=== PATIENT | male | born 1960 | race Caucasian/White ===

== ENCOUNTER 2020-12-11 19:56 | Inpatient (IN) | payer OTHER ==
[~2020-12-11] VITALS: Ht 177.8 cm; Wt 96.0 kg
[2020-12-11 20:01] VITALS: BP 137/80
[2020-12-11] MEDS ORDERED: PROAIR HFA8.5 GM INH (20:03)
[2020-12-11 20:31] LABS: ABSOLUTE NEUTROPHILS 8.1 thou/uL (1.4-8.2); BASOPHILS 0.8 % (0.0-2.0); EOSINOPHILS 0.6 % (0.0-3.0); HEMATOCRIT 37.9 % (42.0-52.0); HEMOGLOBIN 13.2 gm/dL (14.0-18.0); LYMPHOCYTES 16.6 % (24.0-44.0); MCH 40.9 pg (26.0-34.0); MCHC 34.7 g/dL (28.0-37.0); MCV 117.9 fL (80.0-100.0); MONOCYTES 6.9 % (1.0-8.0); PLATELET COUNT 230 thou/uL (150-400); POLYS 75.1 % (36.0-66.0); RBC 3.22 mil/uL (4.50-6.00); RDW 16.3 % (10.5-14.5); WBC 10.8 thou/uL (4.0-11.0)
[2020-12-11 20:43] LABS: ANION GAP 10 mmol/L (7-16); BUN 12 mg/dL (7-18); CALCIUM 9.1 mg/dL (8.5-10.1); CHLORIDE 102 mmol/L (98-107); CO2 27 mmol/L (21-32); CREATININE 0.8 mg/dL (0.7-1.3); GLUCOSE 104 mg/dL (74-106); POTASSIUM 5.1 mmol/L (3.5-5.1); SODIUM 139 mmol/L (136-145)
[2020-12-11 20:54] LABS: ALBUMIN 2.6 g/dL (3.4-5.0); AMYLASE 46 U/L (25-115); DIRECT BILIRUBIN 1.1 mg/dL (<0.1-0.2); LIPASE 156 U/L (73-393); MAGNESIUM 1.2 mg/dL (1.8-2.4); PHOSPHORUS 3.8 mg/dL (2.6-4.7); SGOT 134 U/L (15-37); SGPT 45 U/L (16-63); TOTAL BILIRUBIN 2.2 mg/dL (0.2-1.0); TOTAL PROTEIN 6.1 g/dL (6.4-8.2); TROPONIN-I <0.06 ng/mL (<0.06)
[2020-12-11 20:59] LABS: BE(vivo) 0.7 mmol/L (-2 to +3); HCO3 25.5 mmol/L (22.0-26.0); PCO2 41.3 mmHg (35.0-45.0); PO2 66.5 mmHg (80.0-100.0); pH 7.408 (7.360-7.450); sO2 93.3 % (92.0-98.0)
[2020-12-11 21:15] LABS: URINE BLOOD NEGATIVE (Negative); URINE CLARITY CLEAR; URINE COLOR YELLOW; URINE GLUCOSE-RANDOM* TRACE (Negative); URINE KETONES TRACE (Negative); URINE LEUKOCYTES-REFLEX NEGATIVE (Negative); URINE NITRITE-REFLEX NEGATIVE (Negative); URINE PROTEIN (DIPSTICK) TRACE (Negative); URINE SPECIFIC GRAVITY 1.025 (1.005-1.035)
[2020-12-11 21:17] LABS: ICTOTEST (BILI CONFIRMATORY) Negative (Negative); URINE BILIRUBIN NEGATIVE (Negative)
[2020-12-11 22:07] VITALS: BP 132/92
[2020-12-11 22:20] VITALS: BP 142/92
[2020-12-11 22:50] VITALS: BP 111/98
[2020-12-11 23:11] LABS: FOLIC ACID 4.6 ng/mL (8.6-58.9)
[2020-12-12] VITALS (8 sets, daily range): BP systolic 106–136; BP diastolic 66–92
[2020-12-12 02:39] LABS: ANION GAP 10 mmol/L (7-16); BUN 12 mg/dL (7-18); CALCIUM 8.4 mg/dL (8.5-10.1); CHLORIDE 104 mmol/L (98-107); CO2 25 mmol/L (21-32); CREATININE 0.8 mg/dL (0.7-1.3); GLUCOSE 127 mg/dL (74-106); MAGNESIUM 1.3 mg/dL (1.8-2.4); POTASSIUM 4.9 mmol/L (3.5-5.1); SODIUM 139 mmol/L (136-145); TROPONIN-I <0.06 ng/mL (<0.06)
[2020-12-12 03:13] LABS: CHOLESTEROL 106 mg/dL (<200); HDL CHOLESTEROL 18 mg/dL (>40); LDL CHOLESTEROL 69 mg/dL (<100); TC:HDL 5.9 Ratio (Not establshd); TRIGLYCERIDE 95 mg/dL (<150); VLDL 19 mg/dL (<40)
[2020-12-12 03:26] LABS: SERUM ASSESSMENT Clear
--- NOTE | 2020-12-12 06:40 | NUR ---
RECEIVED REPORT FROM [facility] ED RN.PT ARRIVED TO ROOM 204 AROUND 2230.PATIENT ALERT,ORIENTED.HEART RATE IN THE 140'S.METOPROLOL GIVEN.LORAZEPAM PO AND IV GIVEN FOR ANXIETY/AGITATION.VOIDS PER URINAL.O2 2L NC.LACTIC LEVEL TRENDING DOWN.NS AT 125 ML/HR.POC CONTINUED.
--- NOTE | 2020-12-12 07:07 | EKG ---
[address] [place] [address] ELECTROCARDIOGRAM REPORT Name: JUANIPENG GibbonsCORNELAGATHA QURESHI Room #: 204-P ADM IN M.R.#: [id number] Admission: 12/11/20 Attend Phys: Marie Field MD Discharge: Date of : 58 Report #: [id number] [facility] ED Test Date: 2020-12-11 Test Time: 20:06:02 Pat Name: CORNEL TINAJERO Department: Room: 204 Gender: M Breakfast Attendant: CHRISTOPH : 1960 Requested By: Evans Salamanca Order Number: [id number] MD: Sidney De Leon Measurements Intervals [place] Rate: 148 P: SC: QRS: -27 QRSD: 116 T: 0 QT: 334 QTc: 525 Interpretive Statements Suspect AFIB/Flutter Incomplete right bundle branch block Inferior infarct, old Lateral leads are also involved No previous ECG available for comparison Electronically Signed On 12-12-2020 7:06:55 CDT by Sidney De Leon [email or web address] <ELECTRONICALLY SIGNED> By: Sidney De Leon MD, [facility] 12/12/20705 05 05 Sidney De Leon MD, [facility] /EPI
--- NOTE | 2020-12-12 09:45 | 2DMMODE ---
[facility] [place] [address] 2 D/M-MODE ECHOCARDIOGRAM Name: CORNEL TINAJERO TITUS Room #: 204-P ADM IN M.R.#: [id number] Admission: 12/11/20 Attend Phys: Marie Field MD Discharge: Date of : 58 Report #: [id number] THIS REPORT FOR: cc: FAM - No family physician/PCP FAM - No family physician/PCP Dwight Bae MD ~ APPROVED REPORT Study performed: 12/12/2020 08:33:30 EXAM: Comprehensive 2D, Doppler, and color-flow Echocardiogram Patient Location: Bedside Room #: 204 Status: routine BSA: 2.29 HR: 145 bpm BP: 127/85 mmHg Rhythm: Tachycardia Other Information Study Quality: Adequate Technically limited study due to obesity, uncooperative patient. Indications Dyspnea Tachycardia Chest Pain Hx: COPD, ETOH and tobacco abuse, DM, HLP, HTN. 2D Dimensions IVSd: 10.13 (7-11mm) LVOT Diam: 19.95 (18-24mm) LVDd: 54.75 mm PWd: 9.97 (7-11mm) Ascending Ao: 39.92 (22-36mm) LVDs: 42.37 (25-40mm) Aortic Root: 37.97 mm Volumes Left Atrial Volume (Systole) Single Plane 4CH: 68.60 mL Single Plane 2CH: 76.62 mL LA ESV Index: 33.00 mL/m2 Aortic Valve AoV Peak Santiago.: 1.39 m/s [facility] [place] [address] [place] [address] 2 D/M-MODE ECHOCARDIOGRAM Name: SHARIFVERONICACORNEL TITUS Room #: 204-P ADM IN M.R.#: [id number] Admission: 12/11/20 Attend Phys: Yahaira Tellez Discharge: Date of : 58 Report #: [id number] AO Peak Gr.: 7.72 mmHg LVOT Max P.71 mmHg LVOT Max V: 1.20 m/s JAC Vmax: 2.69 cm2 Mitral Valve E/A Ratio: 1.3 MV Decel. Time: 96.16 ms MV E Max Santiago.: 0.99 m/s MV A Santiago.: 0.76 m/s MV PHT: 27.89 ms Left Ventricle The left ventricle is normal size. There is normal LV segmental wall motion. There is normal left ventricular wall thickness. Left ventricular systolic function is normal. LVEF is 55%. This study is not technically sufficient to allow evaluation of the LV diastolic function. Right Ventricle The right ventricle is normal size. The right ventricular systolic function is normal. Atria Mild biatrial enlargement. Aortic Valve The aortic valve is not well visualized. No aortic regurgitation is present. There is no aortic valvular stenosis. Mitral Valve Mitral valve leaflets are mildly thickened. Mild mitral annular calcification. Trace mitral regurgitation. Tricuspid Valve The tricuspid valve is normal in structure. There is no tricuspid valve regurgitation noted. Unable to assess PA pressure. Pulmonic Valve Pulmonic valve is not well visualized. Great Vessels The aortic root is normal in size. The ascending aorta is normal in size. IVC is not well visualized. Pericardium There is no pericardial effusion. [facility] [address] [place] [address] 2 D/M-MODE ECHOCARDIOGRAM Name: SHARIFVERONICACORNEL TITUS Room #: 204-P ADM IN .R.#: [id number] Admission: 12/11/20 Attend Phys: Yahaira Tellez Discharge: Date of : 58 Report #: [id number] <Conclusion> The left ventricle is normal size. Left ventricular systolic function is normal. LVEF is 55%. Mild biatrial enlargement. The aortic valve is not well visualized. No aortic regurgitation is present. Mitral valve leaflets are mildly thickened. Mild mitral annular calcification. Trace mitral regurgitation. The tricuspid valve is normal in structure. There is no tricuspid valve regurgitation noted. Unable to assess PA pressure. Pulmonic valve is not well visualized. The aortic root is normal in size. There is no pericardial effusion. <ELECTRONICALLY SIGNED> By: Dwight Bae MD 12/12/20 0945 0945 0945 Dwight Bae MD /INF
[2020-12-12 10:10] LABS: INR 1.29; PROTIME 13.9 Seconds (9.3-11.4)
--- NOTE | 2020-12-12 13:02 | EKG ---
[address] [address] ELECTROCARDIOGRAM REPORT Name: LIORCORNEL QURESHI Room #: 204-P ADM IN M.R.#: [id number] Admission: 12/11/20 Attend Phys: Marie Field MD Discharge: Date of : 58 Report #: [id number] [facility] ED Test Date: 2020-12-11 Test Time: 20:57:31 Pat Name: CORNEL TINAJERO Department: Room: 204 P Gender: M Block Greaser: CHRISTOPH : 1960 Requested By: Evans Salamanca Order Number: [id number] MD: Aftab Murphy Measurements Intervals [place] Rate: 146 P: 93 NE: 95 QRS: -79 QRSD: 144 T: -29 QT: 359 QTc: 560 Interpretive Statements Possibel atrial flutter with 2:1 conduction Nonspecific T wave abnormality Low voltage QRS Compared to ECG 12/11/2020 20:06:02 No significant change was found Electronically Signed On 12-12-2020 13:02:49 CDT by Aftab Murphy [email or web address] <ELECTRONICALLY SIGNED> By: Aftab Murphy MD, [facility] 12/12/20 1302 56 56 Aftab Murphy MD, [facility] /EPI
--- NOTE | 2020-12-12 13:05 | EKG ---
[address] [address] ELECTROCARDIOGRAM REPORT Name: LIORCORNEL QURESHI Room #: 204-P ADM IN M.R.#: [id number] Admission: 12/11/20 Attend Phys: Marie Field MD Discharge: Date of : 58 Report #: [id number] [facility] Test Date: 2020-12-12 Test Time: 07:34:51 Pat Name: CORNEL TINAJERO Department: Room: 204 P Gender: M Panelboard Operator: JERRICA : 1960 Requested By: Elly Anderson Order Number: [id number] MD: Aftab Murphy Measurements Intervals [place] Rate: 144 P: 85 IA: 80 QRS: -72 QRSD: 112 T: -47 QT: 339 QTc: 525 Interpretive Statements Sinus tachycardia vs atrial flutter 2:1 conduction Leftward axis Low voltage QRS Compared to ECG 12/11/2020 20:57:31 No significant change was found Electronically Signed On 12-12-2020 13:04:58 CDT by Aftab Murphy [email or web address] <ELECTRONICALLY SIGNED> By: Aftab Murphy MD, [facility] 12/12/20 1304 0734 0734 Aftab Murphy MD, [facility] /EPI
--- NOTE | 2020-12-12 14:11 | NUR ---
Case opened to follow for dc planning. Chart reviewed and case discussed with the care team. Dc timeframe is uncertain as the pt is being treated for ethol w/d, COPD and aflutter. Cardizem gtt today and o2 at 2lnc. Nursing reports pt is irritable and trying to get comfortable. Tugboat Engineer spoke with pt's Ruby and her cell number was confirmed. She was by this morning on her way to work. she confirmed that the pt does not have health ins at this time. She met with the [employer] liason yesterday evening and they [place] and [place] application for the pt. She reports that he has been unable to work for some time due to health issues and ethol abuse. This has worsened significantly over the past few months and notes he drinks 24hrs a day. She states that he has not been to any inpt tx programs but at one time had sobriety for 5+ years. He was indep with gait and txs as well as adl's and helped with errands and cooking prior to the past couple of months. He has been having increased swelling and pain in his lower exts and he has been staying in bed most of the time. He does not have a pcp or saftey net clinic. [facility] and [facility] discussed. She is hopeful he can improve and want to be sober and better his health situation. He does not have any dme at home and no prior HH or SNF needs. Cm role introduced. Will follow along. PT/OT evals requested as appropriate.
--- NOTE | 2020-12-12 18:53 | NUR ---
PT BEGAN SHIFT AXOX4, PLEASANT. DAY PROGRESSED, PT BECAME MORE AGITATED AND INCREASED CIWA PROTOCOL. PT HAS VISIBLE TREMORS WHEN REACHING FOR WATER, COMPLAINS OF BEING WARM, AND IS AGITATED WHEN SLEEPING. PT HAS HAD HR 140-150s, ST ON MONITOR. DR SAMS CONSULTED, CARDIAC COMMUNICATIONS DEPARTMENT CHAIR CONSULTED. CARDIZEM GTT STARTED, ALONG WITH AGGRESSIVE CIWA RX PROTOCOL. HR IS 100-110s. POC IS TO CONTINUE TO MONITOR HR/BP/O2. PT IS ON 4L NC, SOA ON EXERTION. FALL PRECAUTIONS IN PLACE. FREQUENT ROUNDINGS.
[2020-12-12 23:06] LABS: GLYCOHEMOGLOBIN (HGB A1C) 4.4 % (4.8-5.6)
[2020-12-13] VITALS (28 sets, daily range): BP systolic 67–152; BP diastolic 42–94
--- NOTE | 2020-12-13 04:52 | NUR ---
PT ALERT AND AGITATED AT START OF SHIFT HR UP TO 140'S TITRATED CARDIZEM GTT UP AND IV LEAKING CHANGED TO OTHER IV SITE AND HR DOWN TO LOW 100'S, VSS, CIWA MONITORED AND TREATED THRU THE NOC, REPOSITIONED NEEDED CON'T TO MONITOR PER PPOC.
[2020-12-13 05:08] LABS: CALCIUM 8.3 mg/dL (8.5-10.1); CREATININE 0.8 mg/dL (0.7-1.3); MAGNESIUM 1.7 mg/dL (1.8-2.4); PHOSPHORUS 2.6 mg/dL (2.5-4.9); POTASSIUM 4.6 mmol/L (3.5-5.1)
[2020-12-13 05:14] LABS: HEMATOCRIT 39.3 % (42.0-52.0); HEMOGLOBIN 13.1 gm/dL (14.0-18.0); MCHC 33.2 g/dL (28.0-37.0); MCV 117.5 fL (80.0-100.0); RBC 3.35 mil/uL (4.50-6.00); RDW 15.8 % (10.5-14.5); WBC 11.4 thou/uL (4.0-11.0)
[2020-12-13 05:29] LABS: ALBUMIN 2.5 g/dL (3.4-5.0); DIRECT BILIRUBIN 1.2 mg/dL (<0.1-0.2); TOTAL PROTEIN 5.3 g/dL (6.4-8.2)
[2020-12-13 05:31] LABS: INR 1.42; PROTIME 15.2 Seconds (9.3-11.4)
[2020-12-13 11:22] LABS: BE(vivo) -1.9 mmol/L (-2 to +3); HCO3 23.5 mmol/L (22.0-26.0); PCO2 42.6 mmHg (35.0-45.0); PO2 62.3 mmHg (80.0-100.0)
--- NOTE | 2020-12-13 13:56 | NUR ---
RECEIVED PT FROM SEATING UPHOLSTERER. PT IS ORIENTED TO PERSON, SPEECH SLURRED, SHOWING SIGNS OF AGITATION. HR 140-150s. PT HAD CHEST XRAY IN AM, SPEECH TO DO SWALLOW ASSESSMENT. BTWN [phone], PT GOT OUT OF BED AND FELL NEAR BATHROOM/ROOM ENTRANCE. RECEIVED SKIN TEAR/CUT ON LEFT HAND. DR SAMS CONSULTED, ELECTRIC SOLDERER CALLED, FAMILY CALLED. PT CIWA PROTOCOL; HIGH FALL RISKS. PT HAS SITTER IN ROOM, RX LORAZEPAM, HALIDOL, AND CARDIZEM GIVEN. WILL CONTINUE TO CONDUCT FREQUENT ROUNDINGS. DR MICHAEL AND RT CONSULTED. IV TEAM PLACED NEW IV IN R FOREARM. HR IN 100s.
[2020-12-13 18:52] LABS: BE(vivo) -2.2 mmol/L (-2 to +3); HCO3 24.1 mmol/L (22.0-26.0); PCO2 46.9 mmHg (35.0-45.0); sO2 80.1 % (92.0-98.0)
[2020-12-13 18:57] LABS: PO2 47.4 mmHg (80.0-100.0); pH 7.328 (7.360-7.450)
[2020-12-13 20:36] LABS: HEMATOCRIT 39.9 % (42.0-52.0); HEMOGLOBIN 12.9 gm/dL (14.0-18.0); MCH 38.6 pg (26.0-34.0); MCHC 32.4 g/dL (28.0-37.0); MCV 119.3 fL (80.0-100.0); RBC 3.34 mil/uL (4.50-6.00); RDW 16.2 % (10.5-14.5); WBC 17.7 thou/uL (4.0-11.0)
[2020-12-13 20:49] LABS: CALCIUM 8.2 mg/dL (8.5-10.1); CREATININE 0.9 mg/dL (0.7-1.3); POTASSIUM 5.1 mmol/L (3.5-5.1)
[2020-12-13 20:56] LABS: BE(vivo) -3.6 mmol/L (-2 to +3); HCO3 24.6 mmol/L (22.0-26.0); PCO2 58.4 mmHg (35.0-45.0); PO2 104.5 mmHg (80.0-100.0); sO2 96.8 % (92.0-98.0)
[2020-12-13 20:57] LABS: ALBUMIN 2.7 g/dL (3.4-5.0); MAGNESIUM 1.8 mg/dL (1.8-2.4); TOTAL BILIRUBIN 1.6 mg/dL (0.2-1.0)
[2020-12-13 20:57] LABS: pH 7.242 (7.360-7.450)
[2020-12-13 21:54] LABS: APTT 26.1 Seconds (24.5-32.8); INR 1.51; PROTIME 16.1 Seconds (9.3-11.4)
[2020-12-14] VITALS (48 sets, daily range): BP systolic 80–130; BP diastolic 53–85
[2020-12-14 04:26] LABS: CALCIUM 7.7 mg/dL (8.5-10.1); CREATININE 0.9 mg/dL (0.7-1.3); POTASSIUM 4.4 mmol/L (3.5-5.1)
[2020-12-14 04:41] LABS: HEMATOCRIT 37.2 % (42.0-52.0); HEMOGLOBIN 12.5 gm/dL (14.0-18.0); MCH 39.5 pg (26.0-34.0); MCHC 33.5 g/dL (28.0-37.0); MCV 117.8 fL (80.0-100.0); RBC 3.16 mil/uL (4.50-6.00); RDW 15.6 % (10.5-14.5); WBC 12.3 thou/uL (4.0-11.0)
[2020-12-14 05:51] LABS: BE(vivo) -1.2 mmol/L (-2 to +3); HCO3 23.5 mmol/L (22.0-26.0); PCO2 39.5 mmHg (35.0-45.0); PO2 343.1 mmHg (80.0-100.0); pH 7.392 (7.360-7.450); sO2 99.8 % (92.0-98.0)
--- NOTE | 2020-12-14 08:01 | NUR ---
ORDERS FOR EVAL AND TREAT HOWEVER Pt TRANSFERRED TO ICU. WILL PLACE ON HOLD AND AWAIT NEW ORDERS TO INITIATE WHEN APPROPRIATE
--- NOTE | 2020-12-14 08:06 | NUR ---
1899- Patient brought to ICU from on the bipap. Patient with increaased work of breathing, having a lot of belly breathing. Cardizem at 20 mg/hr with HR in the 120's. Patient opens eyes to name. Moves extremities on own. Precedex started upon arrival to ICU. Fluids infusing. Called ABG to Dr. Galindo. Orders to keep on bipap overnight, using ativan to supplement precedex if needed. 1939- Restraints placed to keep patient from pulling at bipap. 1949- 2 mg ativan given. 1954- unable to get an O2 sat on patient. Patient appears cyanotic. code blue called for respiratory arrest. Patient intubated by ER physician. Patient maintained pulse at all times. Pt. did drop HR and blood pressure. Cardizem turned off. Precedex turned off. Ketamine used for intubation. Courtney placed with out difficulty. Additional IV access was obtained. 1L NS given. Levophed started to support blood pressure. Repeat blood gas was called to Dr. Galindo. Adjustments made to vent per orders. HR and rhythm has been mostly a-flutter in the 70's. When patient wakes, HR jumps into the 140's. Versed, Fentanyl and Propofol started to promote comfort while on vent. tolereating well. See documentation on interventions for assessmemt details. Report given to day RN.
--- NOTE | 2020-12-14 11:10 | NUR ---
VAT CONSULTED FOR CVAD. PT'S LABS,HX,ORDER AND CONSENT VERIFIED. RIJ WAS WIDELY PATENT WITH USG, 6FR 25CM TL POWER JACC INSERTED TO 8CM EXTERNAL. BLEEDING AT SITE, GAUZE APPLIED. STAT CXR ORDERED
[2020-12-15] VITALS (45 sets, daily range): BP systolic 92–128; BP diastolic 61–96
[2020-12-15 05:02] LABS: BE(vivo) 0.1 mmol/L (-2 to +3); HCO3 24.9 mmol/L (22.0-26.0); PCO2 40.7 mmHg (35.0-45.0); pH 7.404 (7.360-7.450); sO2 93.4 % (92.0-98.0)
[2020-12-15 05:09] LABS: HEMATOCRIT 38.4 % (42.0-52.0); HEMOGLOBIN 12.7 gm/dL (14.0-18.0); MCH 38.7 pg (26.0-34.0); MCHC 33.1 g/dL (28.0-37.0); MCV 116.8 fL (80.0-100.0); RBC 3.29 mil/uL (4.50-6.00); RDW 15.9 % (10.5-14.5); WBC 10.6 thou/uL (4.0-11.0)
[2020-12-15 05:20] LABS: CALCIUM 7.9 mg/dL (8.5-10.1); CREATININE 0.9 mg/dL (0.7-1.3); POTASSIUM 4.6 mmol/L (3.5-5.1)
--- NOTE | 2020-12-15 06:24 | NUR ---
Patient has remained stable this shift. No significant changes in assessment. See documentation on interventions for assessment details. No family called this shift. Patient is progressing towards goals.
--- NOTE | 2020-12-15 14:40 | NUR ---
IF HR REMAINS ELEVATED, CURRENTLY 115-119 OK TO RESTART PROPOFOL GTT. PER DR. MICHAEL. GIVE LORAZEMPAM FIRST, IF IT DOES NOT DECREASE HR RESTART PROPOFOL. PER DR. CEDILLO
--- NOTE | 2020-12-15 16:27 | NUR ---
1626- PT'S HR HAS SUSTAINED BETWEEN 115-120 THIS SHIFT. CARDIOLOGY ROUNDED ON PT THIS AM AND STARTED METOPROLOL, FIRST DOSE GIVEN THIS AM. NOT MUCH CHANGE TO HR WITH 1ST DOSE. DR. MICHAEL ROUNDED AND STATED TO GIVE 1 DOSE OF IV LORAZEPAM AND THEN TO SWITCH FROM PRECEDEX TO PROPOFOL FOR SEDATION. DR. BURKS WAS CALLED AND MADE AWARE OF CURRENT HR OF 115-120. DR. BURKS STATES PT IS VENTED AND HE IS AWARE AND OKAY WITH THAT HR. WILL CONTINUE TO MONITOR PT.
--- NOTE | 2020-12-15 18:29 | NUR ---
PT WAS STARTED ON TUBE FEEDING THIS AFTERNOON PER DR. ALEC HARTMAN. JEVITY 1.5 WITH A GOAL RATE OF 50 MLS/HR AND 250CC H20 FLUSHES Q6. PT TOLERATED FIRST FLUSH WELL, NO RESIDUALS AT THIS TIME.
[2020-12-16] VITALS (105 sets, daily range): BP systolic 48–121; BP diastolic 15–88
[2020-12-16 04:57] LABS: APTT 26.2 Seconds (24.5-32.8); INR 1.51; PROTIME 16.1 Seconds (9.3-11.4)
[2020-12-16 05:06] LABS: HEMATOCRIT 39.5 % (42.0-52.0); HEMOGLOBIN 13.2 gm/dL (14.0-18.0); MCH 38.8 pg (26.0-34.0); MCHC 33.3 g/dL (28.0-37.0); MCV 116.7 fL (80.0-100.0); RBC 3.39 mil/uL (4.50-6.00); RDW 15.9 % (10.5-14.5); WBC 12.7 thou/uL (4.0-11.0)
[2020-12-16 05:15] LABS: ALBUMIN 2.2 g/dL (3.4-5.0); CALCIUM 7.6 mg/dL (8.5-10.1); CREATININE 0.9 mg/dL (0.7-1.3); MAGNESIUM 1.8 mg/dL (1.8-2.4); POTASSIUM 4.9 mmol/L (3.5-5.1); TOTAL BILIRUBIN 1.3 mg/dL (0.2-1.0); TOTAL PROTEIN 4.9 g/dL (6.4-8.2)
--- NOTE | 2020-12-16 09:15 | EKG ---
[address] [address] ELECTROCARDIOGRAM REPORT Name: RANDY TINAJEROALEK QURESHI Room #: 245- ADM IN M.R.#: [id number] Admission: 12/11/20 Attend Phys: Marie Field MD Discharge: Date of : 58 Report #: [id number] [facility] Test Date: 2020-12-13 Test Time: 20:31:33 Pat Name: CORNEL TINAJERO Department: Room: [facility] Gender: M Film Projector Operator: FSCHWALBE : 1960 Requested By: Marie Field Order Number: [id number] MD: Aftab Murphy Measurements Intervals [place] Rate: 71 P: VT: QRS: 36 QRSD: 122 T: 58 QT: 442 QTc: 481 Interpretive Statements Atrial flutter with predominant 4:1 AV block Right ventricular conduction delay Compared to ECG 12/12/2020 07:34:51 Heart rate has slowed Electronically Signed On 12-16-2020 9:15:02 CDT by Aftab Murphy [email or web address] <ELECTRONICALLY SIGNED> By: Aftab Murphy MD, [facility] 12/16/20914 30 30 Aftab Murphy MD, [facility] /EPI
--- NOTE | 2020-12-16 10:19 | NUR ---
Nutrition: To better meet needs suggest change tube feeds to Vital HP at 55 mL/hr. Noted pt on both IVFS and water flushes with edema present. Address fluid provisions.
--- NOTE | 2020-12-16 10:34 | NUR ---
0900 SPOKE WITH PT'S JOHNNA TINAJERO AND UPDATED HER.
--- NOTE | 2020-12-16 15:45 | NUR ---
chart review. on vent, tf for nutritional support. fio2 30, peep 8. noted bedside nurse spoke with anthony, provided update. will cont following as needed for dc needs.
--- NOTE | 2020-12-16 20:04 | NUR ---
PT REMAINS SEDATED WITH PROPOFOL, VERSED, FENT GTTS. SEDATION VACATION DONE AND PT VERY AGITATED THRASHING OFF SEDATION AND HR INCREASED TO 150'S. SEDATION RESTARTED. TUBE FEEDING CHANGED TO VITAL HP ORDERED. TOLERATING WELL. SPOKE WITH PT'S AT 0900 AND UPDATED HER BY PHONE. 1500 PT'S AT BEDSIDE AND UPDATED. REPORT GIVEN TO CONCRETE PLACEMENT EQUIPMENT OPERATOR RN.
[2020-12-17] VITALS (80 sets, daily range): BP systolic 84–125; BP diastolic 56–86
[2020-12-17 03:31] LABS: PCO2 44.4 mmHg (35.0-45.0); PO2 77.4 mmHg (80.0-100.0); pH 7.332 (7.360-7.450); sO2 94.6 % (92.0-98.0)
[2020-12-17 05:14] LABS: CALCIUM 7.5 mg/dL (8.5-10.1); CREATININE 0.7 mg/dL (0.7-1.3); POTASSIUM 4.6 mmol/L (3.5-5.1)
[2020-12-17 06:18] LABS: HEMATOCRIT 39.8 % (42.0-52.0); HEMOGLOBIN 13.1 gm/dL (14.0-18.0); MCH 38.2 pg (26.0-34.0); MCHC 32.8 g/dL (28.0-37.0); MCV 116.4 fL (80.0-100.0); RBC 3.42 mil/uL (4.50-6.00); WBC 14.4 thou/uL (4.0-11.0)
[2020-12-18] VITALS (22 sets, daily range): BP systolic 101–128; BP diastolic 63–98
[2020-12-18 05:44] LABS: HEMOGLOBIN 13.3 gm/dL (14.0-18.0); MCH 38.8 pg (26.0-34.0); MCHC 33.3 g/dL (28.0-37.0); MCV 116.6 fL (80.0-100.0); RBC 3.43 mil/uL (4.50-6.00); RDW 15.7 % (10.5-14.5); WBC 9.6 thou/uL (4.0-11.0)
[2020-12-18 05:50] LABS: ALBUMIN 2.1 g/dL (3.4-5.0); DIRECT BILIRUBIN 0.8 mg/dL (<0.1-0.2); TOTAL BILIRUBIN 1.5 mg/dL (0.2-1.0); TOTAL PROTEIN 4.6 g/dL (6.4-8.2)
[2020-12-18 05:54] LABS: CALCIUM 7.7 mg/dL (8.5-10.1); CREATININE 0.8 mg/dL (0.7-1.3)
--- NOTE | 2020-12-18 15:47 | NUR ---
PT INTUBATED AND SEDATED. VENT SETTINGS UNCHANGED DUE TO FALIED CPAP TRIAL. PT HAD SEDATION VACATION FOR 5 MINUTES, PT BECAME EXTREMELY AGITATED/TACHYCARDIC. PT DOES NOT FSC, COUGH/GAG INTACT. HAS ANSARCA ON BILATERAL ARMS AND LOWER EXTREMITIES. CHANGES FROM AFIB/AFLUTTER TO NSR REGULARLY. OG TUBE IN PLACE FOR ENTERAL FEEDINGS. PT AFEBRILE, OLIGURIC, NO BM (PRN'S GIVEN), TOLERATING TUBE FEEDINGS WITH RESIDUALS WNL. RIGHT IJ IN PLACE AND FUNCTIONING WELL. PT AND HAVE BEEN UPDATED AND EDUCATED ON PT CONDITION AND POC. PT NOT PROGRESSING TOWARDS POC. PT BEGINING TO HAVE INCREASED AMOUNT OF MOTTLING ON SKIN. PIV IN RIGHT ARM TAKEN OUT BY IV ACCESS TEAM.
[2020-12-18 23:06] LABS: HBsAG-EMPLOYEE EXPOSURE Negative (Negative); HCV AB-EMPLOYEE EXPOSURE <0.1 (0.0-0.9)
[2020-12-19] VITALS (12 sets, daily range): BP systolic 101–132; BP diastolic 66–90
[2020-12-19 04:38] LABS: BE(vivo) 0.3 mmol/L (-2 to +3); HCO3 24.1 mmol/L (22.0-26.0); PCO2 36.3 mmHg (35.0-45.0); PO2 64.5 mmHg (80.0-100.0); sO2 93.4 % (92.0-98.0)
[2020-12-19 05:46] LABS: HEMOGLOBIN 13.4 gm/dL (14.0-18.0); MCH 38.4 pg (26.0-34.0); MCHC 33.4 g/dL (28.0-37.0); RBC 3.48 mil/uL (4.50-6.00); RDW 15.4 % (10.5-14.5); WBC 11.7 thou/uL (4.0-11.0)
[2020-12-19 05:58] LABS: INR 1.41; PROTIME 15.1 Seconds (9.3-11.4)
[2020-12-19 06:13] LABS: CALCIUM 7.3 mg/dL (8.5-10.1); CREATININE 0.8 mg/dL (0.7-1.3); POTASSIUM 4.9 mmol/L (3.5-5.1)
--- NOTE | 2020-12-19 08:30 | NUR ---
cm visited with pt anthony, she here " i want to be here when try and wake him up so i can try keep him clam"/anthony. visited with he at bedside. discussed during am rounds, still on vent, nutritional support. will cont following as needed for dc needs.
--- NOTE | 2020-12-19 22:54 | NUR ---
ASSUMED CARE OF PATIENT AT 1900. PATIENT TACHYPNIC, TACHYCARDIC, FEBRILE. RECTAL THERMOMETER PLACED FOR CLOSER TEMP MONITORING. TYLENOL GIVEN. ICE PACKS PLACED. PROPOFOL INITIATED. TEMP LABILE, WORK OF BREATHING SLOWED SLIGHTLY. O2 SATS REMAIN AT 91%. DR DELA CRUZ NOTIFIED. FIO2 TITRATED TO KEEP O2 ABOVE 92. NOT PROGRESSING TOWARDS POC GOALS.
[2020-12-20] VITALS (24 sets, daily range): BP systolic 107–143; BP diastolic 66–88
[2020-12-20 04:11] LABS: BE(vivo) 1.4 mmol/L (-2 to +3); HCO3 25.4 mmol/L (22.0-26.0); PCO2 38.2 mmHg (35.0-45.0); PO2 71.3 mmHg (80.0-100.0); sO2 94.9 % (92.0-98.0)
--- NOTE | 2020-12-20 10:30 | NUR ---
ASSUMMED CARE OF THIS PATIENT FROM DIOGO OMRATAYA, AT 0700. PATIENT PLACED ON CPAP 03/03 AT [address] DELA CRUZ. PROPOFOL TURNED OFF. PATIENT'S RESP RATE IN THE LOWER 30'S AND MONITOR SHOWING AFIB WITH INTERMITTENT RVR RATE UP TO 130 WITH ETT SUCTIONING. PATIENT PLACED BACK ON VENT AFTER 90 MINS. PATIENT REMAINS AGGITATED, PROPOFOL RESTARTED AT 10MCG/KG/MIN.
[2020-12-20 12:00] LABS: ABSOLUTE NEUTROPHILS 14.3 thou/uL (1.4-8.2); BASOPHILS 0.2 % (0.0-2.0); HEMATOCRIT 38.1 % (42.0-52.0); HEMOGLOBIN 12.8 gm/dL (14.0-18.0); LYMPHOCYTES 1.4 % (24.0-44.0); MCH 38.2 pg (26.0-34.0); MCHC 33.7 g/dL (28.0-37.0); MCV 113.4 fL (80.0-100.0); MONOCYTES 13.3 % (1.0-8.0); PLATELET COUNT 134 thou/uL (150-400); POLYS 85.1 % (36.0-66.0); RBC 3.36 mil/uL (4.50-6.00); RDW 15.5 % (10.5-14.5); WBC 16.8 thou/uL (4.0-11.0)
[2020-12-20 12:08] LABS: ALBUMIN 1.9 g/dL (3.4-5.0); CALCIUM 7.3 mg/dL (8.5-10.1); CREATININE 0.8 mg/dL (0.7-1.3); MAGNESIUM 1.8 mg/dL (1.8-2.4); POTASSIUM 5.1 mmol/L (3.5-5.1); TOTAL BILIRUBIN 1.2 mg/dL (0.2-1.0); TOTAL PROTEIN 4.5 g/dL (6.4-8.2)
[2020-12-20 13:49] LABS: URINE BILIRUBIN NEGATIVE (Negative); URINE BLOOD NEGATIVE (Negative); URINE CLARITY CLEAR; URINE COLOR YELLOW; URINE GLUCOSE-RANDOM* NEGATIVE (Negative); URINE KETONES NEGATIVE (Negative); URINE LEUKOCYTES-REFLEX NEGATIVE (Negative); URINE NITRITE-REFLEX NEGATIVE (Negative); URINE PROTEIN (DIPSTICK) NEGATIVE (Negative)
[2020-12-20 14:04] LABS: ANISOCYTOSIS SLIGHT; MACROCYTES 2+; PLATELET ESTIMATE NORMAL
--- NOTE | 2020-12-20 16:28 | NUR ---
chart review. discussed during am rounds and los. remains on vent, nutritional support. visits, cm visited with her on . no anticipated dc over the weekend. will cont following as needed for dc needs.
--- NOTE | 2020-12-20 19:43 | NUR ---
PATIENT IS PROGRESSING SLIGHTLY TOWARDS OUTCOME GOALS. URINE, SPUTUM AND BLOOD CULTURED PER ORDER. TEMP 98.1 AX. MONITOR AFIB WITH VENT RESPONSE IN THE 80'S WITH SEDATION. WILL BITE AT SUCTION SPONAGES WITH ORAL CARE.
[2020-12-21] VITALS (25 sets, daily range): BP systolic 92–167; BP diastolic 58–111
--- NOTE | 2020-12-21 04:45 | NUR ---
PT REMAINS SEDATED AND ON VENT.PT IN NO ACUTE DISTRESS.PT OPEN EYES SPONTANEOUSLY AT TIMES.REMAINS ON TUBE FEEDING,RESIDUAL <60CC THIS SHIFT.ALFREDO RENDON W/CLAIR UO.NO CHNAGE IN VENT SETTING.NO SIGNIFICANT CHANGES NOTED.
--- NOTE | 2020-12-21 19:25 | NUR ---
ASSUMED CARE 0700. PT CPAP X2 IN AFTERNOON. FIRST ATTEMPT 0800 PT RR INCREASED TO 30'S AND HR IN 130-40'S PRN METOPROLOL FOR RATE. CPAP PER LANIE 1000. LASTED 2 HOURS ON SECOND TRIAL. SEDATION VACTION IN AM... PT NODDING HEAD AND FOLLOWING COMMANDS MOVING ALL EXT. PRN METOPORLOL IN AFTERNOON FOR RATE ONCE AGAIN.. SMALL BM THIS SHIFT. UPDATED @ 1700 TODAY. STATED SHE WILL BE IN TOMORROW MORNING. OVERALL PROGRESSING IN PLAN OF CARE.
[2020-12-22] VITALS (25 sets, daily range): BP systolic 94–137; BP diastolic 62–96
[2020-12-22 04:33] LABS: HEMATOCRIT 39.8 % (42.0-52.0); HEMOGLOBIN 13.2 gm/dL (14.0-18.0); MCV 115.2 fL (80.0-100.0); RBC 3.46 mil/uL (4.50-6.00); RDW 15.2 % (10.5-14.5); WBC 17.9 thou/uL (4.0-11.0)
[2020-12-22 04:42] LABS: CALCIUM 7.3 mg/dL (8.5-10.1); CREATININE 0.7 mg/dL (0.7-1.3); POTASSIUM 5.1 mmol/L (3.5-5.1)
--- NOTE | 2020-12-22 06:00 | NUR ---
REMAINS INTUBATED AND SEDATED. FOLLOWS SIMPLE COMMANDS. SUCTIONED FOR A MOD TO LARGE AMT THICK BEIGE SECRETIONS. Bathed. 1000 cc uo THIS SHIFT. REMIANS IN ABIF TO A FLUTTER PROGRESSING TOWARD GOALS
[2020-12-22 12:52] LABS: BE(vivo) 1.6 mmol/L (-2 to +3); HCO3 25.3 mmol/L (22.0-26.0); PCO2 36.8 mmHg (35.0-45.0); PO2 71.4 mmHg (80.0-100.0); pH 7.455 (7.360-7.450); sO2 95.2 % (92.0-98.0)
--- NOTE | 2020-12-22 18:28 | NUR ---
AM SEDATION VACATION PT FOLLOWING COMMANDS. WHEN STOPPING SEDATION IN AFTERNOON PT GREW RESTLESS, WOULD NOT FOLLOW, AND BEGAN TO VIOLENTLY SHAKE HEAD BACK AND FORTH. PROPOFOL GTT RESUMED. FENTANYL TITRATED TO 0. CPAP [phone] TODAY. TOLERATED WELL EVIDENCED BY ABG. SMALL BM IN AFTERNOON. PROGREESSING IN PLAN OF CARE.
[2020-12-23] VITALS (24 sets, daily range): BP systolic 90–113; BP diastolic 54–75
[2020-12-23 02:21] LABS: ALBUMIN 1.7 g/dL (3.4-5.0); CALCIUM 7.4 mg/dL (8.5-10.1); CREATININE 0.7 mg/dL (0.7-1.3); MAGNESIUM 1.7 mg/dL (1.8-2.4); POTASSIUM 4.9 mmol/L (3.5-5.1); TOTAL PROTEIN 4.3 g/dL (6.4-8.2)
[2020-12-23 04:58] LABS: ABSOLUTE NEUTROPHILS 15.9 thou/uL (1.4-8.2); BASOPHILS 0.3 % (0.0-2.0); HEMATOCRIT 37.5 % (42.0-52.0); HEMOGLOBIN 12.8 gm/dL (14.0-18.0); LYMPHOCYTES 2.3 % (24.0-44.0); MCH 38.7 pg (26.0-34.0); MCHC 34.1 g/dL (28.0-37.0); MCV 113.6 fL (80.0-100.0); MONOCYTES 7.1 % (1.0-8.0); PLATELET COUNT 208 thou/uL (150-400); POLYS 90.3 % (36.0-66.0); RDW 15.5 % (10.5-14.5); WBC 17.6 thou/uL (4.0-11.0)
--- NOTE | 2020-12-23 06:14 | NUR ---
Patient remains restrained and does not follow commands. Restless when sedation is lightened. On propofol and precedex for ventilator support. Plan to CPAP or possibly extubated today. Pt is progressing towards nursing home goals.
[2020-12-23 09:28] LABS: BE(vivo) 4.8 mmol/L (-2 to +3); HCO3 28.5 mmol/L (22.0-26.0); PCO2 38.9 mmHg (35.0-45.0); PO2 62.6 mmHg (80.0-100.0); pH 7.483 (7.360-7.450); sO2 93.5 % (92.0-98.0)
--- NOTE | 2020-12-23 12:48 | NUR ---
chart review. discussed during am rounds. remains on vent, nutritional support, cpap trials. bedside nurse has provided updates to anthony, she visits as well. will cont following as needed for dc needs.
--- NOTE | 2020-12-23 14:28 | NUR ---
PT INTUBATED AND SEDATED. VENT SETTINGS UNCHANGED. PT CPAP TODAY FROM [phone], TOLERATED WELL. SEDATION VACATION FROM [id number], PT BECOMES AGITATED, DOES NOT FSC. CENTRAL LINE REPLACED DUE TO DISLODGMENT ON PREVIOUS SHIFT, CONFIRMED BY CXR. PT AFEBRILE, POLYUREA, NO BM (PRN'S GIVEN), TOLERATING TUBE FEEDINGS AT GOAL. MAGNESIUM REPLACED PER [facility] PROTOCAL. PT AND HAVE BEEN UPDATED AND EDUCATED ON PT CONDITION AND POC. PT SLOWLY PROGRESSING TOWARDS POC.
[2020-12-24] VITALS (23 sets, daily range): BP systolic 85–109; BP diastolic 52–72
[2020-12-24 04:25] LABS: CALCIUM 7.6 mg/dL (8.5-10.1); CREATININE 0.7 mg/dL (0.7-1.3); POTASSIUM 4.9 mmol/L (3.5-5.1)
--- NOTE | 2020-12-24 04:45 | NUR ---
ASSESSMENT: PT REMAIN SEDATED PER PROPOFOL AND PRECEDEX FOR MANAGEMENT OF VENT. VENT SETTINGS UNCHANGED. AFIB/AFLUTTER/SR PER MONITOR. VSS, AFEBRILE. BATH GIVEN, SMALL SMEAR OF BM. POLY URINATION PER FUENTES, SMALL SEDIMENTS, YELLOW. UPPER EXTREMITIES WEEPY; COVERED WITH DRY CHUX PADS. 100 ML MAX RESIDUAL FROM OG TUBE. TF CONTINUES AT GOAL OF 55ML/HR. CURRENTLY POOR PROGRESS TOWARDS DC GOALS, WILL CONTINUE TO MONTIOR. RIGHT IJ INTACT, ALL PORTS PATENT.
[2020-12-25] VITALS (23 sets, daily range): BP systolic 91–116; BP diastolic 52–73
--- NOTE | 2020-12-25 02:15 | NUR ---
ASSESSMENT: PT REMAIN INTUBATED ON THE VENT WITH PROPOFOL BEING RESUMED POST CPAP TRIAL. RESUMED POST CPAP TRIAL. PT CPAP'D FOR 4 HOURS. AFIB/AFLUTTER PER MONITOR WITH RATES CONTROLLED. MODERATE SECREATIONS ORALLY, BEIGE/THICK. MINIMAL SUCTIONING PER ETT, LIGHT TANNISH COLOR. NO BM. WEEPING INCREASING ON UPPER EXTREMITIES. ADEQUATE UO PER FUENTES, COLOR LIGHT WILTON WITH SEDIMENTS. VENT SETTINGS UNCHANGED. LUNG SOUNDS = COURSE. RIGHT IJ INTACT AND PATENT. ABD FIRM WITH DISTANT BOWEL SOUNDS. MAX RESIDUAL FROM OG TUBE = 60, BENEPROTEIN GIVEN WITH H20 FLUSHES. POOR PROGRESS TOWARDS DC GOALS. WILL CONTINUE TO MONITOR.
[2020-12-25 05:27] LABS: CALCIUM 7.7 mg/dL (8.5-10.1); CREATININE 0.6 mg/dL (0.7-1.3); MAGNESIUM 1.8 mg/dL (1.8-2.4); POTASSIUM 5.2 mmol/L (3.5-5.1)
[2020-12-25 08:21] LABS: HEMATOCRIT 38.7 % (42.0-52.0); HEMOGLOBIN 12.7 gm/dL (14.0-18.0); MCH 37.7 pg (26.0-34.0); MCHC 32.8 g/dL (28.0-37.0); MCV 114.8 fL (80.0-100.0); PLATELET COUNT 254 thou/uL (150-400); RBC 3.37 mil/uL (4.50-6.00); RDW 15.8 % (10.5-14.5); WBC 25.2 thou/uL (4.0-11.0)
[2020-12-25 10:18] LABS: BE(vivo) 4.2 mmol/L (-2 to +3); HCO3 29.5 mmol/L (22.0-26.0); PCO2 46.9 mmHg (35.0-45.0); PO2 72.7 mmHg (80.0-100.0); pH 7.417 (7.360-7.450); sO2 94.7 % (92.0-98.0)
[2020-12-25 10:32] LABS: ABSOLUTE NEUTROPHILS 24.4 thou/uL (1.4-8.2); ANISOCYTOSIS 3+; MACROCYTES 2+
[2020-12-25 10:44] LABS: ALBUMIN 1.8 g/dL (3.4-5.0); DIRECT BILIRUBIN 0.3 mg/dL (<0.1-0.2); TOTAL BILIRUBIN 0.7 mg/dL (0.2-1.0); TOTAL PROTEIN 4.5 g/dL (6.4-8.2)
[2020-12-25 13:34] LABS: pH 7.417 (7.360-7.450)
[2020-12-25 13:35] LABS: BE(vivo) 4.2 mmol/L (-2 to +3); HCO3 29.3 mmol/L (22.0-26.0); PCO2 46.9 mmHg (35.0-45.0); PO2 72.7 mmHg (80.0-100.0); sO2 94.7 % (92.0-98.0)
--- NOTE | 2020-12-25 18:37 | NUR ---
PT STARTING TO PROGRESS TOWARDS GOALS. LESS AGITATED TODAY. STILL WITH SLIGHTLY LABORED BREATHING. TOLORATING TUBE FEEDINGS.
[2020-12-26] VITALS (24 sets, daily range): BP systolic 92–130; BP diastolic 48–87
[2020-12-26 06:01] LABS: CALCIUM 8.2 mg/dL (8.5-10.1); CREATININE 0.7 mg/dL (0.7-1.3); MAGNESIUM 1.9 mg/dL (1.8-2.4)
[2020-12-26 06:12] LABS: POTASSIUM 5.4 mmol/L (3.5-5.1)
--- NOTE | 2020-12-26 11:38 | NUR ---
SPOKE W/ PT'S SPOUSE, JOHNNA, ON THE PHONE. UPDATED ON PT CONDITION AND CURRENT TREATMENTS. JOHNNA STATED THAT SHE WOULD BE VISITING THIS AFTERNOON AFTER SHE GETS OFF FROM WORK.
--- NOTE | 2020-12-26 14:58 | NUR ---
PT'S , JOHNNA, AT BEDSIDE FOR VISIT.
--- NOTE | 2020-12-26 16:52 | NUR ---
PT OPENS EYES TO VOICE AND FOLLOWS COMMANDS BY WIGGLING TOES AND OPENING MOUTH FOR ORAL CARE. PT NODS HEAD YES/NO APPROPRIATELY TO SIMPLE QUESTIONS. CPAP TRIAL 4.5 HRS. TOLERATING TUBE FEEDINGS. URINE OUTPUT EXCELLENT. OVERALL, PT IS TENUOUSLY PROGRESSING TOWARD GOALS.
[2020-12-26 20:47] LABS: BE(vivo) 2.6 mmol/L (-2 to +3); HCO3 25.8 mmol/L (22.0-26.0); PCO2 35.4 mmHg (35.0-45.0); PO2 78.4 mmHg (80.0-100.0); sO2 96.4 % (92.0-98.0)
[2020-12-27] VITALS (24 sets, daily range): BP systolic 95–121; BP diastolic 56–72
[2020-12-27 04:53] LABS: HEMATOCRIT 37.9 % (42.0-52.0); HEMOGLOBIN 12.4 gm/dL (14.0-18.0); MCH 37.2 pg (26.0-34.0); MCHC 32.7 g/dL (28.0-37.0); MCV 113.8 fL (80.0-100.0); RBC 3.33 mil/uL (4.50-6.00); RDW 15.9 % (10.5-14.5); WBC 21.7 thou/uL (4.0-11.0)
[2020-12-27 05:23] LABS: CREATININE 0.6 mg/dL (0.7-1.3); MAGNESIUM 1.8 mg/dL (1.8-2.4)
[2020-12-27 05:28] LABS: POTASSIUM 5.3 mmol/L (3.5-5.1)
--- NOTE | 2020-12-27 06:24 | NUR ---
Shift summary; Patient stable through the night. Heart rate and rhythm stable flutter in the 70's. Sbp stable in the low 100's. Continues on Precedex and propofol for comfort while on vent. Low residuals, tolerating tube feeds. No BM this shift. Adequate oxygenation on vent settings. Able to titrate down FIO2 to 30% Adequate U/O. AM labs noted. No family called this shift. See documentation on interventions for assessment details. Patient is progressing towards goals.
--- NOTE | 2020-12-27 16:49 | NUR ---
chart review. discussed during am rounds and los. bedside nurse cont visit with anthony, visits as well. vent , tf for nutritional support. no anticipated dc needs. will cont following as needed for dc needs.
--- NOTE | 2020-12-27 19:12 | NUR ---
patient progressing towards dismissal goals. patient cpap trial today. sedation vacation off precedex patient became restess and agitated, tachypneic. precedex resumed. family () visited at bedside today.
[2020-12-28] VITALS (25 sets, daily range): BP systolic 91–131; BP diastolic 49–100
[2020-12-28 06:37] LABS: HEMATOCRIT 36.6 % (42.0-52.0); HEMOGLOBIN 12.3 gm/dL (14.0-18.0); MCHC 33.5 g/dL (28.0-37.0); MCV 113.4 fL (80.0-100.0); RBC 3.23 mil/uL (4.50-6.00); RDW 15.4 % (10.5-14.5); WBC 19.6 thou/uL (4.0-11.0)
--- NOTE | 2020-12-28 06:43 | NUR ---
Patient stable through the shift. No changes in assessment. Resting comfortable on vent. Did not speak with family. Good U/O tolerating tube feeds. Less edematous and weeping. Patient is progressing towards goals. See documentation on interventions for assessment details.
[2020-12-28 06:46] LABS: CALCIUM 8.1 mg/dL (8.5-10.1); CREATININE 0.6 mg/dL (0.7-1.3); MAGNESIUM 1.6 mg/dL (1.8-2.4); POTASSIUM 5.1 mmol/L (3.5-5.1)
[2020-12-28 08:44] LABS: BE(vivo) 5.2 mmol/L (-2 to +3); HCO3 28.4 mmol/L (22.0-26.0); PO2 67.3 mmHg (80.0-100.0); pH 7.503 (7.360-7.450); sO2 94.9 % (92.0-98.0)
--- NOTE | 2020-12-28 09:41 | NUR ---
0815 PROPOFOL TURNED OFF AND PLACED ON CPAP TRIAL PER RT. [address] DELA CRUZ AND REQUESTED TO EXTUBATE. PT EXTUBATED BY RT. 0941 PT'S JOHNNA UPDATED.
--- NOTE | 2020-12-28 19:11 | NUR ---
PT CONFUSED FOLLOWING EXTUBATION TODAY. PT'S AT BEDSIDE AND UPDATED THIS AFTERNOON. PT REMAINS NPO. FREQUENT PRODUCTIVE COUGH WITH MODERATE AMOUNT OF BEIGE/OLIVER SPUTUM EXPELLED. O2 SATS STABLE ON NC THIS AFTERNOON. HR ELEVATED 120-130'S THIS AFTERNOON AND CARDIZEM GTT STARTED. REPORT GIVEN TO SUPERVISOR PLASTICS RN. PT SLOWLY PROGESSING TOWARDS GOALS PER PLAN OF CARE.
[2020-12-29] VITALS (23 sets, daily range): BP systolic 110–150; BP diastolic 64–82
[2020-12-29 03:41] LABS: CALCIUM 8.6 mg/dL (8.5-10.1); CREATININE 0.7 mg/dL (0.7-1.3); HEMATOCRIT 38.1 % (42.0-52.0); HEMOGLOBIN 12.6 gm/dL (14.0-18.0); MAGNESIUM 1.6 mg/dL (1.8-2.4); MCHC 33.1 g/dL (28.0-37.0); MCV 111.7 fL (80.0-100.0); POTASSIUM 4.5 mmol/L (3.5-5.1); RBC 3.41 mil/uL (4.50-6.00); RDW 15.7 % (10.5-14.5)
[2020-12-29 03:44] LABS: WBC 35.4 thou/uL (4.0-11.0)
--- NOTE | 2020-12-29 17:28 | NUR ---
PATIENT STABLE THROUGH OUT THE DAY. STILL REMAINS CONFUSED, ONLY ORIENTED TO SELF, OCCASIONALLY PLACE. HE IS VISUALLY HALLUCINATING IN ROOM. REMAINS ON CARDIZEM GTT FOR AFIB. PRESSURES STABLE. 6L OXYGEN PER NC TO MAINTAIN SATS ABOVE 90%. NPO DUE TO COUGHING, WILL HAVE SPEECH THERAPY COMPLETE SWALLOW EVAL IN THE MORNING. GOOD URINE OUTPUT. AFEBRILE. PROGRESSING TOWARDS GOALS. POTENTIAL TRANSFER OUT OF ICU TOMORROW.
[2020-12-30] VITALS (41 sets, daily range): BP systolic 115–168; BP diastolic 44–119
[2020-12-30 04:25] LABS: HEMATOCRIT 35.9 % (42.0-52.0); HEMOGLOBIN 12.1 gm/dL (14.0-18.0); MCHC 33.7 g/dL (28.0-37.0); MCV 112.8 fL (80.0-100.0); RBC 3.18 mil/uL (4.50-6.00); WBC 27.1 thou/uL (4.0-11.0)
[2020-12-30 04:35] LABS: CALCIUM 8.8 mg/dL (8.5-10.1); CREATININE 0.6 mg/dL (0.7-1.3); MAGNESIUM 1.6 mg/dL (1.8-2.4); POTASSIUM 4.6 mmol/L (3.5-5.1)
--- NOTE | 2020-12-30 12:24 | NUR ---
ONGOING ASSESSMENT: PT WAS EXTUBATED 12/28. ON 6L O2 WHEN NOT ON BIPAP. FUENTES CATH. CARDIZEM GTT. ST TO EVAL AND IF PASS SWALLOW WILL SWITCH TO PO CARDIZEM. LOW GRADE TEMP. CM TO CONT TO FOLLOW.
--- NOTE | 2020-12-30 18:45 | NUR ---
Patient not progressing towards plan of care as evidenced by continued need for nasal cannula and bipap, continued confusion, failed swallow evaluation so remains npo at this time. Plan of care is to continue to monitor patient assessments, vital signs, ability to titrate cardizem gtt, intake and output, and monitor skin assessments.
[2020-12-31] VITALS (41 sets, daily range): BP systolic 114–174; BP diastolic 61–102
[2020-12-31 06:09] LABS: ALBUMIN 2.5 g/dL (3.4-5.0); CALCIUM 8.6 mg/dL (8.5-10.1); CREATININE 0.5 mg/dL (0.7-1.3); POTASSIUM 4.2 mmol/L (3.5-5.1); TOTAL BILIRUBIN 1.5 mg/dL (0.2-1.0); TOTAL PROTEIN 5.7 g/dL (6.4-8.2)
--- NOTE | 2020-12-31 18:26 | NUR ---
ASSUMED PATIENT CARE AT 0700. ALERT. CONFUSED. GENERLIZED WEAKNESS. A FIB ON MONITOR. CARDIZEM GTT AT 15ML/HR. DENIES PAIN. TOLERATED ON 6L/NC 02. SLOLWY TOWARDS POC GOALS.
[2021-01-01] VITALS (26 sets, daily range): BP systolic 101–149; BP diastolic 61–100
[2021-01-01 05:14] LABS: HEMOGLOBIN 11.9 gm/dL (14.0-18.0); MCH 37.4 pg (26.0-34.0); MCHC 33.1 g/dL (28.0-37.0); MCV 112.8 fL (80.0-100.0); RBC 3.19 mil/uL (4.50-6.00); RDW 15.3 % (10.5-14.5); WBC 23.1 thou/uL (4.0-11.0)
[2021-01-01 06:01] LABS: CALCIUM 8.9 mg/dL (8.5-10.1); CREATININE 0.5 mg/dL (0.7-1.3); MAGNESIUM 1.8 mg/dL (1.8-2.4)
--- NOTE | 2021-01-01 19:05 | NUR ---
RN ASSUMED PT'S CARE AT 0700AM, PT IS A&OX1 ( PERSON ), PT IS CONFUSED AT TIME, PT CAN FOLLOW SOME COMMANDS, PT IS CONTINUING IV DILTIAZEM UP TO 20MG/HR NOW TO KEEP HR AT 80-100, PT'S VS ARE STABLE, PT IS OFF BIPAP AND HE IS ON O2 3L/MIN/NC TO KEEP O2SAT AT 93-96%, PT STARTS PUREED DIET AND PO MEDICATIONS, PT DOES NOT HAVE SOB AND PAIN AT DAY SHIFT, PT IS VERY WEAK, HE NEEDS HELP ADL .
[2021-01-02] VITALS (12 sets, daily range): BP systolic 88–131; BP diastolic 59–99
[2021-01-02 05:18] LABS: HEMATOCRIT 36.1 % (42.0-52.0); HEMOGLOBIN 11.9 gm/dL (14.0-18.0); MCH 37.6 pg (26.0-34.0); MCV 113.7 fL (80.0-100.0); RBC 3.18 mil/uL (4.50-6.00); RDW 15.4 % (10.5-14.5); WBC 16.6 thou/uL (4.0-11.0)
[2021-01-02 05:38] LABS: CALCIUM 8.4 mg/dL (8.5-10.1); CREATININE 0.5 mg/dL (0.7-1.3); MAGNESIUM 1.7 mg/dL (1.8-2.4); POTASSIUM 3.8 mmol/L (3.5-5.1)
--- NOTE | 2021-01-02 10:15 | NUR ---
discussed during am rounds and los possible move out to ccu. possible will need 5 n to eval if needed to return home with .
--- NOTE | 2021-01-02 15:59 | NUR ---
REPORT GIVEN TO HOOD MATHUR. PT CONFUSED. PT ALERT AND ORIENTED TO SELF. PT HAD A MODERATE BOWEL MOVEMENT. MAGNESIUM REPLACED. INFORMED ABOUT PT TRANSFER. CONTINUE TO MONITOR.
--- NOTE | 2021-01-03 04:48 | NUR ---
PT A/OX1,FOLLOWS COMMANDS APPROPRIATELY.REMAINS ON O2 AT 3LITERS PNC,SATS ADEQUATE.AFIB ON MONITOR.METOPROLOL GIVEN X2 FOR HR>120 SUSTAINING.VSS.ALFREDO DD,ADEQUATE UO.TURNED AND REPOSITIONED Q2H.TOLERATING.PAIN MEDS GIVEN FOR BACK PAIN W/PARTIAL RELIEF.PT PROGRESSING SLOWLY TO DISCHARGE GOALS.
[2021-01-03 05:00] VITALS: BP 134/87
[2021-01-03 05:49] LABS: HEMATOCRIT 37.7 % (42.0-52.0); HEMOGLOBIN 12.4 gm/dL (14.0-18.0); MCH 36.7 pg (26.0-34.0); MCHC 32.9 g/dL (28.0-37.0); MCV 111.4 fL (80.0-100.0); RBC 3.39 mil/uL (4.50-6.00); RDW 15.5 % (10.5-14.5); WBC 14.4 thou/uL (4.0-11.0)
[2021-01-03 06:44] LABS: ALBUMIN 2.3 g/dL (3.4-5.0); CALCIUM 8.4 mg/dL (8.5-10.1); CREATININE 0.6 mg/dL (0.7-1.3); DIRECT BILIRUBIN 0.4 mg/dL (<0.1-0.2); MAGNESIUM 2.1 mg/dL (1.8-2.4); TOTAL BILIRUBIN 0.9 mg/dL (0.2-1.0)
[2021-01-03 08:00] VITALS: BP 107/72
--- NOTE | 2021-01-03 10:55 | NUR ---
ASSUMMED CARE OF THIS PATIENT FROM THE NIGHT NURSE, LUDY MORATAYA. AT 0700. PATIENT IS NOT PARTICIPATING IN CARE.
[2021-01-03 11:15] VITALS: BP 125/85
--- NOTE | 2021-01-03 12:21 | NUR ---
Pt now on CCU. 5N consult requested for possible dc to rehab next week if stable. PT/OT/ST are working with him.
[2021-01-03 16:00] VITALS: BP 95/66
--- NOTE | 2021-01-03 18:11 | NUR ---
PATIENT IS SLOWLY PROGRESSING TOWARDS OUTCOME GOALS. REMAINS WEAK AND UNWILLING TO PARTICIPATE IN CARE. REPOSITIONED IN BED FOR COMFORT. FED MEALS.
[2021-01-03 19:55] VITALS: BP 119/75
--- NOTE | 2021-01-04 04:52 | NUR ---
ASSUMED PT CARE AT 1900.PT WAS OBSERVED LYING ON THE BED WITH HIS EYES CLOSED AT SHIFT CHANGE.PT ALERT TO SELF.PT WITH NON PRODUCTIVE LOOSE COUGH.PT WEAK BUT COMFORTABLE IN BED.PT CONT ON IV ABX.FUENTES CATH TO DD.PT SLEPT WITH HIS BIPAP AT HS,DODIE WELL.PT ON 3L/NC.SWALLOW AND FALL PRECAUTIONS MAINTAINED.CALL LIGHT WITHIN REACH.
[2021-01-04 05:27] LABS: HEMATOCRIT 35.8 % (42.0-52.0); HEMOGLOBIN 12.1 gm/dL (14.0-18.0); MCH 37.4 pg (26.0-34.0); MCHC 33.9 g/dL (28.0-37.0); MCV 110.3 fL (80.0-100.0); RBC 3.24 mil/uL (4.50-6.00); RDW 15.3 % (10.5-14.5); WBC 11.1 thou/uL (4.0-11.0)
[2021-01-04 05:37] LABS: CALCIUM 8.5 mg/dL (8.5-10.1); CREATININE 0.7 mg/dL (0.7-1.3); MAGNESIUM 1.7 mg/dL (1.8-2.4); POTASSIUM 3.9 mmol/L (3.5-5.1)
[2021-01-04 07:38] VITALS: BP 110/72
--- NOTE | 2021-01-04 09:27 | NUR ---
SUGGEST REMOVAL OF IJ THIS PATIENT IS ON A NON VESSICANT MED AND DOES NOT NEED CENTRAL LINE ACCESS AT THIS TIME. A PERIPHERAL IV WOULD BE APPROPRIATE AND WILL DECREASE RISK OF A POTENTIAL BLOOD STREAM INFECTION.
[2021-01-04 11:25] VITALS: BP 113/73
[2021-01-04 15:13] VITALS: BP 107/52
[2021-01-04 20:02] VITALS: BP 120/67
--- NOTE | 2021-01-05 02:14 | NUR ---
PT WAS OBSERVED LYING ON HIS BED WITH HIS EYES CLOSED AT SHIFT CHANGE.PT'S HR BETTER THIS SHIFT,IN HIGH 70'S - MID 80'S.PT ALERT/CONFUSED.PO FLUIDS ENCOURAGED.PT REPOSITIONED IN BED FOR COMFORT.BG MONITORED,NO INSULIN GIVEN.PT SLEEPING WITH HIS CPAP AT THIS TIME.ALFREDO HERNADEZ TO DD.CALL LIGHT WITHIIN REACH.
[2021-01-05 03:48] VITALS: BP 101/66
[2021-01-05 07:35] VITALS: BP 101/57
[2021-01-05 11:50] VITALS: BP 99/61
[2021-01-05 16:55] VITALS: BP 100/54
[2021-01-05 19:53] VITALS: BP 101/57
[2021-01-05 22:20] VITALS: BP 107/65
[2021-01-06] VITALS (8 sets, daily range): BP systolic 86–119; BP diastolic 46–70
[2021-01-06 05:54] LABS: HEMATOCRIT 34.6 % (42.0-52.0); HEMOGLOBIN 11.5 gm/dL (14.0-18.0); MCH 37.1 pg (26.0-34.0); MCHC 33.3 g/dL (28.0-37.0); MCV 111.3 fL (80.0-100.0); RBC 3.11 mil/uL (4.50-6.00); RDW 15.7 % (10.5-14.5); WBC 8.5 thou/uL (4.0-11.0)
[2021-01-06 05:59] LABS: CALCIUM 8.2 mg/dL (8.5-10.1); CREATININE 0.6 mg/dL (0.7-1.3); POTASSIUM 3.9 mmol/L (3.5-5.1)
--- NOTE | 2021-01-06 07:48 | NUR ---
CONFUSED.TAKES OFF OXYGEN AT TIMES.REPOSITIONED.MONITOR SHOWS SA.POC CONTINUED.
--- NOTE | 2021-01-06 16:46 | NUR ---
PT RESTING COMFORTABLY. REFUSED TO WORK WITH OT/PT. PT AFEBRILE, ADEQUATE UOP, NO BM, NO APPETITE. PT AND HAVE BEEN UPDATED AND EDUCATED ON PT CONDITION AND POC. PT NOT PROGRESSING TOWARDS POC.
--- NOTE | 2021-01-06 21:35 | NUR ---
UPON INITIAL ASSESSMENT PATIENT LETHARGIC AND BLOOD PRESSURE NOTED HYPOTENSIVE. FOLLOW UP BLOOD PRESSURES ACCEPTABLE PER PROVIDER WITH NURSE INSTRUCTED TO CONTINUE MONITORING CLOSELY. PATIENT DOES RESPOND TO STERNAL RUBS, BUT DOES NOT FOLLOW DIRECTION AND QUICKLY CLOSES EYES. NURSE TO LOOK FOR OPPORTUNITY TO SAFELY ADMINISTER PO MEDICATIONS NOT CONTRAINDICATED BY CURRENT VITAL SIGNS. PATIENTS OXYGEN SATURATION IS HIGH 90'S ON 3L NASAL CANNULA. PULMONOLGIST CONTACTED WITH ORDER RECEIVED TO PLACE PATIENT ON BIPAP WHEN LETHARGIC.
[2021-01-07] VITALS (7 sets, daily range): BP systolic 93–108; BP diastolic 52–683
--- NOTE | 2021-01-07 00:18 | NUR ---
ELECTROCHEMIST NOTIFIED OF PATIENTS MIDNIGHT BLOOD PRESSURE. ELECTROCHEMIST STATES IT IS ACCEPTABLE AND FOR NURSE TO CONTINUE TO ASSESS.
--- NOTE | 2021-01-07 10:28 | NUR ---
ASSUMED PT CARE AT 0700. AT 0845, PT ASSESSMENT PERFORMED CHARTED. PT ALERT TO SELF, CITY, BIRTHDAY AND YEAR. MEDICATION ADMINISTRATION, VSS. WILL CONTINUE TO MONITOR AND FOLLOW POC.
--- NOTE | 2021-01-07 11:26 | NUR ---
met with yesterday. She had copied of financial information for [employer] who is assisting with medicaid application. Sp with Trae with [facility]. Made copied placed in envelope on medical chart for Trae to retrieve. reports she can get bank statements on her phone but bank closed due to covid. 5N cont to follow. Attempted to sp with patient but he didtnt respond. He was awake but not alert.
--- NOTE | 2021-01-07 11:52 | NUR ---
Pt sitting up in bed. lights on, blinds open, pt educated that Dr Felipe would like patient awake for most the day and sleep at night. vss. will continue to monitor and follow poc.
--- NOTE | 2021-01-07 18:14 | NUR ---
PTS JOHNNA CALLED. UPDATE GIVEN TO JOHNNA BY RN. JOHNNA STATES SHE WILL BE UP TO SEE HIM TOMORROW. PT NOTIFIED JOHNNA CALLED AND PT STATES HE DOES NOT BELIEVE SHE WILL COME UP HERE. PT REPEATEDLY ASK FOR A CIGARETTE, PT REORIENTATED THAT HE WAS IN THE HOSPITAL AND HE MAY NOT HAVE CIGARETTE. PT ROLLS HIS EYES AND SAYS OKAY. WILL CONTINUE TO MONITOR PT AND FOLLOW POC.
[2021-01-08 04:45] VITALS: BP 97/56
[2021-01-08 05:27] LABS: HEMATOCRIT 31.1 % (42.0-52.0); HEMOGLOBIN 10.7 gm/dL (14.0-18.0); MCH 37.9 pg (26.0-34.0); MCHC 34.3 g/dL (28.0-37.0); MCV 110.5 fL (80.0-100.0); RBC 2.82 mil/uL (4.50-6.00); RDW 15.3 % (10.5-14.5); WBC 7.9 thou/uL (4.0-11.0)
[2021-01-08 05:47] LABS: INR 1.4
[2021-01-08 05:54] LABS: ALBUMIN 2.1 g/dL (3.4-5.0); CALCIUM 8.2 mg/dL (8.5-10.1); CREATININE 0.7 mg/dL (0.7-1.3); TOTAL BILIRUBIN 0.7 mg/dL (0.2-1.0); TOTAL PROTEIN 4.7 g/dL (6.4-8.2)
[2021-01-08 07:46] VITALS: BP 92/51
--- NOTE | 2021-01-08 08:39 | NUR ---
ASSUMED PT CARE AT 0700. PTS LIGHTS ON, BLINDS OPEN, PT AWAKE PER DRS ORDERS. VSS. ASSESSMENT PERFORMED CHARTED. VSS. PT STATES HE IS GOING TO WALK OUT OF HERE TODAY DUE TO NOT BEING ABLE TO SMOKE. PT EDUCATED ON GIVING HIM A NICOTINE PATCH. PT STATES OKAY. WILL CONTINUE TO MONITOR AND FOLLOW POC.
--- NOTE | 2021-01-08 10:53 | NUR ---
Patient accepted to 5N acute rehab. Left message on phone of planned transfer to unit. Gave room number and number to floor. no further needs.
[2021-01-08 11:09] VITALS: BP 84/49
--- NOTE | 2021-01-08 12:32 | NUR ---
PT IN [facility].
[2021-01-08 14:03] VITALS: BP 94/61
[2021-01-08 14:11] VITALS: BP 94/61
[2021-01-08] MEDS ORDERED: IPRAT-ALBUT 0.5-3 ML INH (14:40)
[2021-01-08] MEDS ORDERED: BACTRIM DS TAB1 EACH PO (14:40)
[2021-01-08] MEDS ORDERED: METOPROLOL TART25 MG PO (14:41)
[2021-01-08] MEDS ORDERED: VERAPAMIL HCL 880 M1 PO (14:41)
[2021-01-08] MEDS ORDERED: BAYER CHEWABLE81 MG PO (14:41)
[2021-01-08] MEDS ORDERED: MUCINEX600 MG PO (14:43)
[2021-01-08] MEDS ORDERED: DEMADEX20 MG PO (14:43)
[2021-01-08] MEDS ORDERED: ACETYLCYST200 MG/1 M INH (14:43)
[2021-01-08] MEDS ORDERED: PROTONIX40 M2 PO (14:44)
[2021-01-08] MEDS ORDERED: PRENATAL PO (14:44)
[2021-01-08] MEDS ORDERED: VITAMIN B-1100 M2 PO (14:44)
== END 2021-01-08 15:57 | DRG 870 ==
LOC: ER 19:56 → EROBS 21:34 → 2N 22:21 → ICU 12-13 18:55 → 2N 01-02 15:19
PROVIDERS: Emergency Medicine; Hospitalist; Internal Medicine; Internal Medicine Pulmonary Disease; Nurse Practitioner; Nurse Practitioner Family; Pediatrics; Specialist; ADMIT Hospitalist; ATTEND Hospitalist
PROC: 0BH17EZ Insertion of Endotracheal Airway into Trachea, Via Natural or Artificial Opening (ICD-10-PCS; 2020-12-13)
PROC: 5A1955Z Respiratory Ventilation, Greater than 96 Consecutive Hours (ICD-10-PCS; 2020-12-13)
PROC: 5A09357 Assistance with Respiratory Ventilation, Less than 24 Consecutive Hours, Continuous Positive Airway Pressure (ICD-10-PCS; 2020-12-13)
PROC: 02HV33Z Insertion of Infusion Device into Superior Vena Cava, Percutaneous Approach (ICD-10-PCS; 2020-12-14)
PROC: 0B9J8ZX Drainage of Left Lower Lung Lobe, Via Natural or Artificial Opening Endoscopic, Diagnostic (ICD-10-PCS; principal; 2020-12-24)
PROC: 5A09357 Assistance with Respiratory Ventilation, Less than 24 Consecutive Hours, Continuous Positive Airway Pressure (ICD-10-PCS; 2020-12-29)
PROC: 5A09357 Assistance with Respiratory Ventilation, Less than 24 Consecutive Hours, Continuous Positive Airway Pressure (ICD-10-PCS; 2020-12-30)
PROC: 5A09357 Assistance with Respiratory Ventilation, Less than 24 Consecutive Hours, Continuous Positive Airway Pressure (ICD-10-PCS; 2020-12-31)
PROC: 5A09357 Assistance with Respiratory Ventilation, Less than 24 Consecutive Hours, Continuous Positive Airway Pressure (ICD-10-PCS; 2021-01-01)
PROC: 5A09357 Assistance with Respiratory Ventilation, Less than 24 Consecutive Hours, Continuous Positive Airway Pressure (ICD-10-PCS; 2021-01-03)
PROC: 5A09357 Assistance with Respiratory Ventilation, Less than 24 Consecutive Hours, Continuous Positive Airway Pressure (ICD-10-PCS; 2021-01-04)
PROC: 5A09357 Assistance with Respiratory Ventilation, Less than 24 Consecutive Hours, Continuous Positive Airway Pressure (ICD-10-PCS; 2021-01-07)
PROC: 5A09357 Assistance with Respiratory Ventilation, Less than 24 Consecutive Hours, Continuous Positive Airway Pressure (ICD-10-PCS; 2021-01-08)
DX: A41.9 Sepsis, unspecified organism (principal); J96.01 Acute respiratory failure with hypoxia; G92 Toxic encephalopathy; D61.89 Other specified aplastic anemias and other bone marrow failure syndromes; E43 Unspecified severe protein-calorie malnutrition; J18.9 Pneumonia, unspecified organism; E87.2 Acidosis; K62.5 Hemorrhage of anus and rectum; J45.901 Unspecified asthma with (acute) exacerbation; I48.92 Unspecified atrial flutter; D68.9 Coagulation defect, unspecified; F10.231 Alcohol dependence with withdrawal delirium; K56.7 Ileus, unspecified; E87.1 Hypo-osmolality and hyponatremia; G72.81 Critical illness myopathy; Z88.0 Allergy status to penicillin; R65.20 Severe sepsis without septic shock; K70.31 Alcoholic cirrhosis of liver with ascites; F17.210 Nicotine dependence, cigarettes, uncomplicated; E83.42 Hypomagnesemia; F10.229 Alcohol dependence with intoxication, unspecified; K70.11 Alcoholic hepatitis with ascites; J43.9 Emphysema, unspecified; R41.0 Disorientation, unspecified; I87.2 Venous insufficiency (chronic) (peripheral); I95.9 Hypotension, unspecified; K21.9 Gastro-esophageal reflux disease without esophagitis; E66.9 Obesity, unspecified; I48.0 Paroxysmal atrial fibrillation; E87.5 Hyperkalemia; D69.6 Thrombocytopenia, unspecified; Z20.822 Contact with and (suspected) exposure to COVID-19; Z82.49 Family history of ischemic heart disease and other diseases of the circulatory system; Z81.1 Family history of alcohol abuse and dependence; Z83.6 Family history of other diseases of the respiratory system; Z80.0 Family history of malignant neoplasm of digestive organs; Z79.82 Long term (current) use of aspirin; Z79.899 Other long term (current) drug therapy; Z68.30 Body mass index [BMI] 30.0-30.9, adult
CPT/HCPCS: 10078; 10081

== ENCOUNTER 2021-01-08 09:45 | Inpatient (IN) | payer OTHER ==
[~2021-01-08] VITALS: Ht 180.3 cm; Wt 92.3 kg
[~2021-01-08 09:45] MED LIST: PROAIR HFA8.5 GM INH
[2021-01-08] MEDS ORDERED: BACTRIM DS TAB1 EACH PO (14:40)
[2021-01-08] MEDS ORDERED: IPRAT-ALBUT 0.5-3 ML INH (14:40)
[2021-01-08] MEDS ORDERED: BAYER CHEWABLE81 MG PO (14:41)
[2021-01-08] MEDS ORDERED: METOPROLOL TART25 MG PO (14:41)
[2021-01-08] MEDS ORDERED: VERAPAMIL HCL 880 M1 PO (14:41)
[2021-01-08] MEDS ORDERED: ACETYLCYST200 MG/1 M INH (14:43)
[2021-01-08] MEDS ORDERED: MUCINEX600 MG PO (14:43)
[2021-01-08] MEDS ORDERED: DEMADEX20 MG PO (14:43)
[2021-01-08] MEDS ORDERED: PROTONIX40 M2 PO (14:44)
[2021-01-08] MEDS ORDERED: VITAMIN B-1100 M2 PO (14:44)
[2021-01-08] MEDS ORDERED: PRENATAL PO (14:44)
[2021-01-08 16:00] VITALS: BP 129/101
--- NOTE | 2021-01-08 16:00 | NUR ---
PT ARRIVED VIA BED TO ROOM. PT WAS ABLE TO SIGN ADMIT PAPERWORK. PT HAD A HARD TIME WITH WRITING HIS NAME. PT ORIENTED TO PLACE, PERSON, AND SEASON. PT HAS FUENTES TO DD WITH STRAW COLOR URINE. PT HAS NEW SCD'S ON. PT HAS IJ TO RT NECK. PT WANTING TO HAVE COFFEE TO DRINK AND WATER. PT WANTING HEAD UP AND DOWN, PT ALSO WANTING TO GET UP AND WALK. PT ENFORMED ABOUT PHYSICAL THERAPY WILL SEE HIM AND EVAL HOW HE CAN DODIE. ACTIVITY. PT HAS OXYGEN ON 3L NC. PT ALSO MENTIONED HE WANTED NATHEN ZEE AND COKE. PT NEEDS NECTOR LIQIDS FOR NOW. PT STATED HE LOST A LOT OF WT REACENTLY. PT STATE HE STARTED SMOKING AROUND 6 YRS OLD WITH HIS DAD ROLLING CIGARS. HE STATED HE ONLY DRINKS A COUPLE OF DRINKS ON THE WEEKEND. ATTEMPTED TO CALL JOHNNA AND LEFT MESSAGE ON HER PHONE OF ROOM NUMBER. PT STATED HE HAD X1 COVID VACCINE BUT DIDN'T REMEMBER DATE.
[2021-01-08 19:47] VITALS: BP 116/59
--- NOTE | 2021-01-09 01:21 | NUR ---
PT ASSESSMENT COMPLETED AND VSS. MEDS GIVEN ORDERED AND WELL TOLERATED. FALL PRECAUTIONS IN PLACE. PICTURE TAKEN OF SACRAL WOUND AND Z GUARD APPLIED. HEART DRESSING APPLIED TO SACRAL WOUND. ASST WITH REPOSITION FOR COMFORT USING PILLOWS. SAT WNL ON NC. PT CONTINUES TO PULL NC OFF FREQUENTLY. SAT HOLDING WELL EVEN WHEN PT PULLS 02 NC OFF. RN PLACED 02 BACK ON FREQUENTLY. SLEEPING. WILL CONTINUE TO MONITOR FREQUENTLY. PT GETS AGITATED EASILY. PROVIDED MUCH EMOTIONAL SUPPORT. WILL CONTINUE TO MONITOR FREQUETLY.
[2021-01-09 03:52] VITALS: BP 105/62
[2021-01-09 05:52] LABS: HEMATOCRIT 33.7 % (42.0-52.0); HEMOGLOBIN 11.4 gm/dL (14.0-18.0); MCHC 33.9 g/dL (28.0-37.0); MCV 109.4 fL (80.0-100.0); RBC 3.08 mil/uL (4.50-6.00); RDW 15.4 % (10.5-14.5)
[2021-01-09 06:12] LABS: CALCIUM 8.3 mg/dL (8.5-10.1); CREATININE 0.7 mg/dL (0.7-1.3); POTASSIUM 3.8 mmol/L (3.5-5.1)
--- NOTE | 2021-01-09 08:19 | NUR ---
PT TOLERATED BIPAP WELL DURING THE NIGHT. THIS MORNING PT REFUSED HIS MEDICATION. RN EXPLAINED THAT HE NEEDED HIS HEART MEDICATION TO GET WELL. PT STATED THAT HE DID NOT WANT IT AND THAT HE WANTED TO . INFORMED DAY RN THAT PT WANTS TO AND IS REFUSING CARE THIS MORNING.
[2021-01-09 08:45] VITALS: BP 117/72
--- NOTE | 2021-01-09 09:44 | NUR ---
chart review. unable to visit with rafiq, rodney had visited with his anthony while he was in the icu. 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 no dme, no hh or rehab in past. no insurance. has Daqi nain and ss disability pending. will cont following as needed for dc needs.
--- NOTE | 2021-01-09 11:30 | NUR ---
ASSUMED CARE AT 0700. ALERT AND ORIENTATED TO SELF ONLY, MOSTLY CONFUSED. FOLLOW SIMPLE INSTRUCTIONS. PT IS WEAK AND UNABLE TO KEEP HIS HEAD UP WHEN SITTED ON THE WC. PT TOLERATED HIS AM MEDS WITH APPLE SAUCE. SACRAL WOUND SEEN BY WOUND CARE AND ORDERS RECEIVED TO APPLY Z GUARD. FUENTES INTACT AND DRAINING ADEQUATELY. HAS A FOOT DROP AND WEAKNESS, SENT DOWN FOR LUMBAR XRAY. APPETITE FAIR, ON CALORIE COUNT. LIMITED THERAPY DUE TO IMMOBILITY AND COGNITIVE IMPAIRMENT. IV TEAM NOTIFIED OF CENTRAL LINE TO R IJ AND NOT FLUSHING. SPOKE TO PRICILA WHALEY, TO KEEP LINE FOR NOW. DOES NOT APPEAR TO BE IN ANY PAIN OR DISTRESS.
--- NOTE | 2021-01-09 11:47 | NUR ---
WOUND CONSULT; THE PATIENT IS VERY WEAK TODAY. CONFUSED. NOT ABLE TO RESPOND APPROPRIATLY. THE PATIENT HAS AREAS TO THE SACRUM/COCCYX/BUTTOCKS CONSISTANT WITH DTI'S. NO DRAINGE OR ANY S/S OF INFECTION. THE PERIWOUND MARGINGS ARE INTACT. RECOMMENDATIONS; -Q2H TURNING -LOW AIR LOSS BED PUMP. -ZGUARD BID/PRN DISCUSSED WITH HOOD
[2021-01-09 19:38] VITALS: BP 88/57
--- NOTE | 2021-01-10 00:43 | NUR ---
PT ALERT AND ORIENTED X 1, CONFUSED. 02 0N AT 3L PER NC. PT REMOVING BIPAP DURING THE NIGHT. REFUSES TO KEEP IN ON. FUENTES PATENT DRAINING CLEAR DARK YELLOW URINE. PT TOOK HS MEDS CRUSHED IN APPLESAUCE WITHOUT DIFFICULTY. PT DENIES PAIN OR DISCOMFORT. BED ALARM ON FOR SAFETY. PT CHECKED ON HOURLY ROUNDS AND HAS BEEN AWAKE. PT PULLING AT FUENTES AT TIMES.
[2021-01-10 06:05] LABS: ALBUMIN 2.1 g/dL (3.4-5.0); CALCIUM 8.3 mg/dL (8.5-10.1); CREATININE 0.7 mg/dL (0.7-1.3); POTASSIUM 3.7 mmol/L (3.5-5.1); TOTAL PROTEIN 4.9 g/dL (6.4-8.2)
[2021-01-10 07:15] VITALS: BP 113/60
--- NOTE | 2021-01-10 13:16 | NUR ---
ASSUMED CARE AT 0700. AWAKE, ALERT TO SELF ONLY. FOLLOW COMMANDS MUCH TOLERATED. DENIES ANY PAIN AND DOES NOT SEEMS TO BE IN ANY PAIN. PER RT PT IS OFF 02 AND WAS SATING AT 92% ON ROOM AIR. BLOOD SUGAR ORDERS DISCONTINUED. TOOK ALL MEDS CRUSHED IN APPLE SAUCE. WAS SENT FOR SWALLOW STUDY TODAY BUT WAS NOT ABLE TO DO PER ST DUE TO PT WAS RESTLESS. PT ALSO HAD NO BM SINCE 01/06, SPOKE TO GABRIELE WHALEY REGARDING A STOOL REGIMEN. PT IS ON CALORIE COUNT AND A FEEDER AND ATE ONLY 15-25% OF MEALS TODAY. FUENTES DRAINING TO DD WITH GOOD OUTPUT.
[2021-01-10 20:00] VITALS: BP 162/78
--- NOTE | 2021-01-11 00:55 | NUR ---
PT ASSESSMENT COMPLETED AND VSS. MEDS GIVEN ORDERED AND WELL TOLERATED. FALL PRECAUTIONS IN PLACE. SAT WNL ON NC. PT REFUSED BIPAP. SAT WNL WITH SPOT CHECKS. MELATONIN HELPFUL FOR SLEEP. TURNED PT FREQUENTLY. ZGUARD APPLIED TO SACRAL WOUND. SLEEPING WELL. WILL CONTINUE TO MONITOR FREQUENTLY. PT REFUSED SCDS.
[2021-01-11 07:20] VITALS: BP 79/44
[2021-01-11 10:21] VITALS: BP 99/60
--- NOTE | 2021-01-11 10:47 | NUR ---
ASSUMED CARE AT 0700. PATIENT IS ALERT AND ORIENTED X1. PATIENT KNIGHT'S, TEACHING MANAGER ARE EQUAL. LUNGS ARE DEMINISHED. PATIENT ABD IS SOFT AND ROUNDED. LACTULOSE GIVEN. PATIENT IS ON CALORIE COUNT. PATIENT HAD BREAKFAST WITH SPEECH AND WOULD ONLY DRINK THE THICKENED COFFEE. PATIENT HAS FUENTES TO DD, DRAINING WILTON COLORED URINE. 02 AT 3L PER N/C. PATIENT IS TO BE TURNED Q 2 HOURS. PATIENT BOTTOM HAS Z GUARD APPLIED. PATIENT REMAINS ON LOW ENDURANCE PROGRAM. FALL AND Safety PROTOCOLS IN PLACE. C/O LEFT HIP PAIN. MEDICATED WITH PAIN PATCH. CONTINUES TO BE MAX ASSIST WITH TRANSFERS FOR BSC. CONTINUES ON HONEY THICK LIQUIDS. WILL CONTINUE TO MONITER.
[2021-01-11 20:50] VITALS: BP 88/64
--- NOTE | 2021-01-12 03:36 | NUR ---
PT LYING IN BED. DENIES PAIN. RESTING COMFORTABLY. NO NEEDS VOICED. CALL LIGHT WITHIN REACH. FREQUENT OBSERVATION.
[2021-01-12 07:30] VITALS: BP 154/76
[2021-01-12 12:15] LABS: HEMATOCRIT 33.9 % (42.0-52.0); HEMOGLOBIN 11.7 gm/dL (14.0-18.0); MCH 36.8 pg (26.0-34.0); MCHC 34.5 g/dL (28.0-37.0); MCV 106.7 fL (80.0-100.0); RBC 3.18 mil/uL (4.50-6.00); RDW 15.4 % (10.5-14.5); WBC 10.6 thou/uL (4.0-11.0)
[2021-01-12 12:34] LABS: CALCIUM 8.2 mg/dL (8.5-10.1); CREATININE 0.7 mg/dL (0.7-1.3); MAGNESIUM 1.4 mg/dL (1.8-2.4); POTASSIUM 3.9 mmol/L (3.5-5.1)
--- NOTE | 2021-01-12 14:33 | NUR ---
ASSUMED CARE AT 0700. MARIAM IS ALERT AND ORIENTED TO HIMSELF, EXHIBITS CONFUSION AND FORGETFULLNESS. BP AND HR WERE ELEVATED IN AM. PROVIDER ORDERED TO ADMINISTER BP MEDS WHICH WERE ON HOLD. BP MEDS ADMINISTERED, BY LUNCH TIME PT'S HR HAS LOWERED TO 80bpm, AND BP HAS LOWERED THE 79/50. ONE TIME ORDER OF BOLUS NaCl WAS ADMINISTERED. DURING ADMINISTRATION OF BOLUS, PATIENT WAS GRABBING AT IV SITE, AND BITING ON TUBING, TRYING TO PULL IT OUT. NURSE REMAINED WITH PATIENT TRHOUGOUT IV ADMINISTRATION TO ENSURE SAFETY. BP POST BOLUS WAS 84/53.
[2021-01-12 19:28] VITALS: BP 88/59
--- NOTE | 2021-01-12 22:55 | NUR ---
PT ALERT AND ORIENTED X 1, CONFUSED. 02 ON AT 2L PER NC. PT REMOVES 02 FREQUENTLY AND PUTS TUBING IN HIS MOUTH. REAPPLIED NEEDED. IV INFUSING ORDERED. PT TRYING TO REMOVE COBAN FROM IV SITE. INSTRUCTED TO LEAVE IV ALONE NUMEROUS TIMES. FUENTES PATENT DRAINING DARK YELLOW URINE. BP 88/59, HR 93 AT START OF SHIFT. METOPROLOL HELD PER PARAMETERS. PT TOOK MEDS CRUSHED IN APPLESAUCE WITHOUT DIFFICULTY. TAKING SPOONS OF HONEY THICK APPLE JUICE. PT DENIES PAIN OR DISCOMFORT. BED ALARM ON FOR SAFETY. PT CHECKED ON HOURLY ROUNDS AND APPEARS TO BE SLEEPING AT THIS TIME.
[2021-01-13] VITALS (7 sets, daily range): BP systolic 91–114; BP diastolic 63–83
--- NOTE | 2021-01-13 01:23 | NUR ---
PT PULLED OUT IV. TUGGING ON FUENTES CATHETER. PT STATED HE WOULD NOT LET NURSE PUT ANOTHER IV IN. DR PRETTY NOTIFIED WITH ORDERS RECEIVED. BP 102/72 AT THIS TIME. PT BECAME VERY AGITATED WHEN TRYING TO CHECK BP. DR PRETTY NOTIFIED AND SHE WOULD NOT GIVE ORDERS FOR SOMETHING FOR AGITATION BECAUSE OF LOW BP. BOW MAKER PRODUCTION STEVE TO COME UP AND SEE PT.
--- NOTE | 2021-01-13 03:48 | NUR ---
WOOD TYPE CUTTER RESTARTED IV IN RFA. BOLUS NS 500 ML GIVEN ORDERED. D5NS AT 125 ML/HR NOW INFUSING. PT C/O HEADACHE. TYLENOL GIVEN AND PT SLEEPING UPON REASSESSMENT. WILL CONTINUE TO MONITOR CLOSELY.
[2021-01-13 06:02] LABS: HEMATOCRIT 32.9 % (42.0-52.0); HEMOGLOBIN 11.3 gm/dL (14.0-18.0); MCH 37.1 pg (26.0-34.0); MCHC 34.5 g/dL (28.0-37.0); MCV 107.8 fL (80.0-100.0); RBC 3.05 mil/uL (4.50-6.00); RDW 15.5 % (10.5-14.5); WBC 8.6 thou/uL (4.0-11.0)
[2021-01-13 06:13] LABS: CALCIUM 7.8 mg/dL (8.5-10.1); CREATININE 0.5 mg/dL (0.7-1.3); MAGNESIUM 1.5 mg/dL (1.8-2.4); POTASSIUM 3.3 mmol/L (3.5-5.1)
--- NOTE | 2021-01-13 08:45 | EKG ---
[address] [address] ELECTROCARDIOGRAM REPORT Name: CORNEL TINAJERO TITUS Room #: 509-P ADM IN M.R.#: [id number] Admission: 01/08/21 Attend Phys: Marcos Dowling MD Discharge: Date of : 58 Report #: [id number] [facility] Test Date: 2021-01-12 Test Time: 11:23:48 Pat Name: CORNEL TINAJERO Department: Room: 509 P Gender: M Conventional Mortgage Underwriter: CAMRYN : 1960 Requested By: Raul Chopra Order Number: [id number] MD: Aftab Murphy Measurements Intervals [place] Rate: 77 P: GA: QRS: 71 QRSD: 138 T: 67 QT: 441 QTc: 500 Interpretive Statements Atrial flutter/fibrillation Nonspecific intraventricular conduction delay Compared to ECG 12/13/2020 20:31:33 No significant change was found Electronically Signed On 01-13-2021 8:45:26 CDT by Aftab Murphy [email or web address] <ELECTRONICALLY SIGNED> By: Aftab Murphy MD, [facility] 01/13/21 0845 1123 [id number] Aftab Murphy MD, [facility] /EPI
[2021-01-13 14:34] LABS: URINE BILIRUBIN NEGATIVE (Negative); URINE BLOOD NEGATIVE (Negative); URINE COLOR YELLOW; URINE GLUCOSE-RANDOM* NEGATIVE (Negative); URINE KETONES TRACE (Negative); URINE LEUKOCYTES TRACE (Negative); URINE NITRITE NEGATIVE (Negative); URINE PROTEIN (DIPSTICK) TRACE (Negative); URINE SPECIFIC GRAVITY >= 1.030 (1.005-1.035)
[2021-01-13 14:36] LABS: URINE CLARITY CLEAR
--- NOTE | 2021-01-13 16:00 | NUR ---
Patient is very confused and refusing to allow NM to scan his bracelet or administer his oral digoxin. Pt's RN Severino has also attempted multiple times. 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 Attempts at re-orientation have failed, and heart rate remains 135 with o2 sat 90% on RA. Pt is resting with no complaints and a message has been sent to Marino Burris, PROPELLER LAYOUT WORKER, and to Dr. Bae, Plant Breeder to let them know that we continue to attempt to give the medication.
--- NOTE | 2021-01-13 17:38 | EKG ---
[address] [place] [address] ELECTROCARDIOGRAM REPORT Name: RANDY TINAJEROALEK QURESHI Room #: 509-P ADM IN M.R.#: [id number] Admission: 01/08/21 Attend Phys: Marcos Dowling MD Discharge: Date of : 58 Report #: [id number] [facility] Test Date: 2021-01-13 Test Time: 15:12:19 Pat Name: CORNEL TINAJERO Department: Room: 509 P Gender: M Rn Pain Management: FSCHWALBE : 1960 Requested By: Kala Burris Order Number: [id number] MD: Aftab Murphy Measurements Intervals [place] Rate: 142 P: 38 WI: 164 QRS: 32 QRSD: 103 T: 0 QT: 270 QTc: 415 Interpretive Statements Atrial flutter with 2:[address] and T wave abnormality Low voltage QRS Compared to ECG 01/12/2021 11:23:48 Heart rate has increased Electronically Signed On 01-13-2021 17:38:12 CDT by Aftab Murphy [email or web address] <ELECTRONICALLY SIGNED> By: Aftab Murphy MD, [facility] 01/13/21 1738 1512 1512 Aftab Murphy MD, [facility] /EPI
--- NOTE | 2021-01-13 21:11 | NUR ---
ASSUMED CAR AT 0700. A&O TO SELF. REQUIRES CONSTANT REORIENTATION TO SITUATION AND PLACE. FUENTES IN PLACE, DARK YELLOW URINE NOTED. PATIENT IS CURRENTLY ON CONTINUOUS IV FLUID OF D5&NS. PATIENT EXHIBITED VS INSTABILITY THROUGHOUT SHIFT. SBP BETWEEN 85-109, W/ TACHYCARDIA HR RANGING FROM 110-140. CARDIOLOGY CONSULTED, NEW ORDERS TO MANAGE HR IMPLEMENTED. COMBATIVE AND IMPULSIVE BEHAVIOR EXHIBITED THROUGHOUT SHIFT; PATIENT REMOVED STAT LOCK STABALIZING FUENTES IN PLACE, THIS HAS BEEN REPLACE WITH A NEW ONE, PATIENT KEPT BITING IV LINE AND WAS ABLE TO CUT IT APART, LINE HAS BEEN REPLACED, PATIENT CONTINUES TO EXPRESS THAT IF NURSE DOES NOT WANT TO HELP HIM GET SOME LIQUOR AND CIGARRETES THEN HE DOES NOT WANT ANYTHING TO DO WITH HER. PATIENT REPORT A HEADACHE, AND PAIN WAS MANAGED WITH PRN TYLENOL, WHICH SEEMD TO BE EFFECTIVE BECAUSE PATIENT WAS ABLE TO CAML DOWN AND REST. WILL CONTINUE TO MONITOR.
--- NOTE | 2021-01-14 02:23 | NUR ---
BP AND HR MUCH IMPROVED AT 2330 COMPARED TO 1999, PATIENT HAS REMOVED STAT LOCK THAT STABILIZES HIS FUENTES, IT HAS BEEN REPLACED AND REINFORCED, HE HAS REMOVED HIS IV FOR IV FLUIDS FROM HIS RIGHT UPPER ARM, NEW IV SITE PLACED IN RIGHT WRIST WITH MULTIPLE COBAN COVERINGS. PATIENT IS TURNING SELF, BUT AFTER AGAIN PLACING ZGUARD TO HIS SACRUM, HE WAS TURNED TO HIS RIGHT AGAIN WITH WEDGE TO KEEP HIM FURTHER OVER. HAS ASKED FOR US TO GET BEER AND CIGARETTES, AND IS SURE THAT HE COULD WALK. HE CAN STATE HIS FULL NAME AND BIRTHDATE.
[2021-01-14 03:49] VITALS: BP 102/82
[2021-01-14 08:31] VITALS: BP 97/66
--- NOTE | 2021-01-14 10:00 | NUR ---
PT WORKED WITH THERAPY PT THIS AM AND WAS LYING ON LEFT SIDE. PT SLEEPING AND NOT WAKING UP FOR OT. PT DIDN'T TAKE PO MEDS THIS AM DUE TO SOMULANCE. PT HAS RHONCHI TO CHELSEY AND DRY COUGH ON ROOM AIR. PT HAS WOUND TO BUTTOCKS, WOUND CARE CAME AND APPLIED ZGAURD TO AREA. PT RT HAND IS SWOLLEN DUE TO COBAN FROM IV SITE TO KEEP SECURE. UNWRAPPED COBAN AND PUT IT ON LOOSER AND RAISE RT HAND UP WITH PILLOW.
--- NOTE | 2021-01-14 10:21 | NUR ---
WOUND CARE F/U; THE PATIENTS RIGHT BUTTOCKS AREA IS MORE DIFFUSE TODAY. CONSISTANT WITH FRICTION. NO DRAINAGE. NO S/S OF INFECTION. WILL CONTINUE TO FOLLOW. RECOMMENDATION; CONTINUE COLLEEN SIM RN PRESENT.
[2021-01-14 11:07] LABS: CALCIUM 7.8 mg/dL (8.5-10.1); CREATININE 0.5 mg/dL (0.7-1.3); MAGNESIUM 1.3 mg/dL (1.8-2.4); POTASSIUM 3.3 mmol/L (3.5-5.1)
--- NOTE | 2021-01-14 11:14 | NUR ---
CALLED DR. MAJOR ABOUT PT K LEVEL OF 3.3 AND MAG OF 1.3. HE STATED HE WILL PUT ORDERS IN.
--- NOTE | 2021-01-14 12:00 | NUR ---
PT RECIEVED KDUR 40MEQ IN APPLE SAUCE AND MAG 2GM IV X1. PT REFUSED HIS AM MEDS STATED HE IS NOT GOING TO TAKE THAT AND TURNED HIS HEAD A FEW TIMES.
--- NOTE | 2021-01-14 13:14 | NUR ---
team meeting, meds crushed, still doesnt like take meds. wants to drink beer per rafiq request. wound care orders. confusion. have to replace mg and k+. reported he drinks all day and just sits in chair. max assist with bed mobility and would not get out of bed rt back pain. needs assist with all cares and adl's. refused meds at times. severe cog and memory. diet honey thick by spoon and mech soft. on IVF. medmo and ss nain have been started. possbile will look into ltc vs total care at home. re team and look into dc options.
--- NOTE | 2021-01-14 15:49 | NUR ---
PT STARTING TO PULL ON HIS IV AND ASKING ABOUT GETTING A COCKTAIL AND HE ALSO STATED HE IS COLD. PT WANTING A HEATER FROM HOME. HE SAID HE WOULD ALSO LIKE A BALONY SANDWHICH WITH CHEESE, HE SAID ASK JOHNNA IF SHE WOULD LIKE A DRINK ALSO. ASKED PT IF SHE DRINKS THEM HE SAID YES SHE LOVES THEM. 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
--- NOTE | 2021-01-14 16:17 | NUR ---
PT TOOK KDUR 40MEQ PO BROKEN UP IN ORANGE JUICE. PT THOUGHT HE WAS GETTING A COCTAIL. PT WANTING A BALONY SANDWHICH WITH CHEESE AND CIGARETTES AND AMERICAN HISTORY TEACHER. PT SITTING UP IN BED AND TOLERATED ORANGE JUICE.
--- NOTE | 2021-01-14 16:55 | NUR ---
PT STILL ASKING FOR CIGARETTES. PT PULLED IV OUT ALSO.
--- NOTE | 2021-01-14 17:53 | NUR ---
CALLED DR. MAJOR ABOUT PT PULLING OUT IV. PT ALSO WANTED A CIGARETTE AND ORDERS OBTAINED FOR THAT. ASKED ABOUT ANTI-ANXIETY MED AND STATED IF HE DOES IT AGAIN THEN CALL INTERN BRAND LEGAL OFFICER FOR ORDERS.
--- NOTE | 2021-01-14 18:23 | NUR ---
PT STATED HE WANTS HIS SOCKS OFF AND WALKING PANTS. PT WANTING WATER TO DRINK. PT STATED HE DOESN'T LIKE THIS FEELING. PT SLAPPING HIS STOMACH. PT ALERT AND TALKING ABOUT RAFFAELE. PT WANTING TO HAVE HIS NICOTINE PATCH ON NOW. PT STATED HE FEELS ANXIOUS AND WANTING XANAX.
--- NOTE | 2021-01-14 18:36 | NUR ---
ADM LACTULOSE IN APPLE JUICE, PT TOOK WITHOUT ANY ISSUES.
--- NOTE | 2021-01-14 18:41 | NUR ---
PT SLAPPING HANDS TO BED AND CHECKED PULSE VIA APRICAL AND WAS 116. PT WANTING SOCKS OFF FEET. ADM NICOTINE PATCH TO LEFT ARM.
--- NOTE | 2021-01-14 18:55 | NUR ---
PT REALLY ANXIOUS. PT BP TAKEN AND WAS 109/71 AND PULSE 102. PT RECIEVED APPLE JUICE WITH LACTULOSE IN THE CUP. PT DIDN'T WANT ANY THICKEN IN HIS DRINK. PT PULLED UP IN BED X2 STAFF AND HIS HEAD STARTED SPINNING. PT BP NOT LOW, PT ASKED IF THIS ABA TUTOR WAS SPINNING. PT WANTING VIAGRA THEN HE SAID NO NOT VIAGRA. OFFERED TO PLAY ANTHONY MUSIC, PT SAID YES. TURNED LIGHTS OFF AND TV VOLUME DOWN. PT TALKING ABOUT HIS DOGS. PT ALSO TALKING ABOUT HIS KEYS TO HIS CAR.
[2021-01-14 20:08] VITALS: BP 105/73
--- NOTE | 2021-01-15 03:43 | NUR ---
TURNING PATIENT SIDE TO SIDE EVERY 2 HOURS, AFTER 1 O'CLOCK TURN, HE HAS STAYED MORE FULLY ON HIS SIDE THAN USUAL WITH SOME MINOR REPOSITIONING ON HIS OWN SINCE 254. MODERATE SIZED BM AT 0100 AFTER SMALL SMEAR LAST NIGHT. ZGUARD TO HIS MULTIPLE SACRAL/BUTTOCK WOUNDS. DISCUSSION WITH PRICILA ABOUT RESTARTING HIS IV AFTER HE PULLED IT OUT AGAIN; SHE REMINDED ME THAT THE ORDER FOR IV FLUIDS WAS TO KEEP HIS SYSTOLIC BP GREATER THAN 90 OVER THE WEEKEND. HE IS COOPERATIVE WITH TAKING HIS PILLS CRUSHED IN APPLESAUCE THIS SHIFT
[2021-01-15 06:31] LABS: CREATININE 0.4 mg/dL (0.7-1.3); MAGNESIUM 1.5 mg/dL (1.8-2.4); POTASSIUM 3.9 mmol/L (3.5-5.1)
[2021-01-15 07:15] VITALS: BP 106/69
--- NOTE | 2021-01-15 08:12 | NUR ---
PT WORKING WITH ST THIS AM. PT TOOK MEDS CRUSHED IN YOGART. PT PROTONIX AND MUCINEX WAS NOT CRUSHED AND PUT IN YOGART, PT ENCOURAGED NOT TO CHEW UP MEDS. PT LUNGS CLEAR THIS AM AND DOES HAVE A PRODUCTIVE COUGH WITHOUT SPUTUM. PT HAS FUENTES TO DD WITH TEA COLOR URINE. PT STILL HAS HONEY THICK LIQUIDS. PT DOSN'T LIKE THE THICKENER.
--- NOTE | 2021-01-15 10:30 | NUR ---
PT WANTING TO HAVE A COCKTAIL WITH VODKA AND PURPLE BALLS. PT TELLING THIS SALAD COUNTER ATTENDANT HOW TO MAKE IT. PT OFFERED THICKEN WATER PT TOOK A SIP AND STATED HE DIDN'T ORDER THAT. PT DID HAVE A BM AND NEEDED CHANGED. OT WORKING WITH PT AND ASSISTED WITH BED CHANGE. PT WANTING TO TALK TO JOHNNA. CALLED AND LEFT A MESSAGE WITH HER ON HER PHONE.
--- NOTE | 2021-01-15 12:13 | NUR ---
PHYSICAL THERAPY WORKING WITH PT AND HE WAS ABLE TO ASSIST WITH TURNING BACK AND FORTH FOR BED CHANGE. PT HAD SMALL SOFT BM BROWN. PT WOUNDS TO BUTTOCKS ARE HEALING. APPLIED Z-GUARD TO BUTTOCKS. PT STILL HAS FUENTES IN PLACE, TOOK OFF COBAN AROUND RT LEG THAT WAS ALSO ASSISTING IN KEEPING FUENTES INTACT. PT WANTING THIS LOSS MITIGATION SPECIALIST TO CALL JOHN[facility] AND PLAN A GREEN PARTY.
--- NOTE | 2021-01-15 13:25 | NUR ---
Nutrition: pt eating negligible amounts of meals if any per calorie count. Weights trending downward likely combination poor nutrition and improved edema. pt unable to provide any food preferences despite multiple attempts. Only requesting different types of alcohol. Lactulose for elevated NH3. If POC aggressive, pt will likely need PEG tube for nutrition.
--- NOTE | 2021-01-15 13:40 | NUR ---
PT WORKING WITH PHYSICAL THERAPY. PT RESISTANT AT FIRST, PT IS SITTING ON SIDE OF BED. PT UNABLE TO KEEP SELF UP WITHOUT ASSISTANCE.
--- NOTE | 2021-01-15 17:31 | NUR ---
NOTICED PT HAD IV ORDER FOR MAG. VICKERS DR. MAJOR FOR PO ORDERS. STATED HE PREFERS IV UNTIL MAG LEVEL 2.0, STATED IT'S OK TO SEE IF PO WILL BRING UP MAG LEVEL. ORDERS OBTAINED VIA VERBAL FOR PO MAG. PT UPSET AND WANTING TO HAVE A PACK OF [place] FULL FLAVER LONGS. TOLD PT HE CAN NOT SMOKE IN HOSPITAL. PT STATED HE WAS GOING TO GO OUTSIDE. TOLD PT WHO WILL TAKE YOU DOWNSTAIRS, PT JUST ROLLING HIS EYES.
--- NOTE | 2021-01-15 18:00 | NUR ---
PT WAS CHEWING ON HIS FUENTES TUBING AND STATED HE IS TIED DOWN TO THE BED. TOLD PT THAT HE IS PUTTING URINE IN HIS MOUTH, PT STATED I CAN DRINK IT IF I WANT. APPLIED A NEW BAG ATTACHED TO FUENTES. PT WANTING TO HAVE THIS FURNITURE PACKER BUY HIM A PACK OF SMOKES. PT STATED HE WANTS SOME PANTS AND A SHIRT AND ALSO SIZW 10 SHOES.
--- NOTE | 2021-01-15 18:29 | NUR ---
PAGED DR. MAJOR FOR SOMETHING FOR ANXIETY, PT IS BANGING HIS CALL LIGHT ON THE BED RAIL. HE RECOMMENDED CALLING DR. BARCENAS. CALLED DR. BARCENAS SERVICE AND ALSO PAGED HER, WAITING FOR RESPONSE.
--- NOTE | 2021-01-15 18:39 | NUR ---
DR. BARCENAS RETURNED CALLED HIS SYMPTONS HE IS HAVING, PT BANGING PHONE ON HIS SIDE RAILS. SHE SAID SHE WILL ORDER SOMETHING FOR HIS BEHAVIORS.
--- NOTE | 2021-01-15 18:49 | NUR ---
ADM LORAZEPAM 0.5MG AND HALDOL 5MG IM TO RT DELTOID FOR AGGITATION. PT STATED ALL I ASK IS FOR PANTS, SHOES, AND A SHIRT AND THEN A PACK OF SMOKES. EVEN TELLING PT THAT THIS IS A NO SMOKING HOSPITAL PT STILL IS UNABLE TO UNDERSTAND AND HAS POOR INSIGHT AND JUDGEMENT.
--- NOTE | 2021-01-15 19:47 | NUR ---
GIVING REPORT AND PT IS RESTING WITH EYES CLOSED.
[2021-01-15 20:04] VITALS: BP 97/66
--- NOTE | 2021-01-16 02:26 | NUR ---
PT CARE ASSUMED WITH PT SLEEPING .PT IS A/O X1.PT CONFUSE.PT IS ON ROOM AIR.PT TAKES BILLS CRUSHED WITH APPLE SAUCE.PT HAS A FUENTES CATHETER IN PLACE.PT IS ON MECHANICAL ALTERED GROUND DIET AND HONEY THICKEN LIQUIDS.PT APPEARED TO BE IN NO ACUTE DISTRESS.WILL CONTINUE TO MONITOR
[2021-01-16 05:53] LABS: CREATININE 0.4 mg/dL (0.7-1.3); MAGNESIUM 1.3 mg/dL (1.8-2.4); POTASSIUM 3.8 mmol/L (3.5-5.1)
--- NOTE | 2021-01-16 09:40 | NUR ---
WOUND CARE F/U; THE WOUNDS ARE MUCH WORSE TODAY. THERE IS NECROSIS TO THE COCCYX,SACRUM,BUTTOCKS WHICH IS YELLOW WITH SEROSANGINOUS DRAINAGE. THE PATIENT IS ON A LOW AIR LOSS PUMP SINCE ADMISSION. NO ODOR IS PRESENT. THE PATIENT HAS A BLUNTED AFFECT AND DOES RESPOND TO QUESTIONS MINIMALLY. THE PATIENT CANNOT EFFECTIVLY TURN HIMSELF. RECOMMENDATIONS; -CONSULT DR ROBINA CARTER WITH RN
--- NOTE | 2021-01-16 11:35 | NUR ---
cm notified by CONCRETE SMOOTHER and noted that gi consult for possible peg. rodney spoke with his anthony rt cares 24hr at home, she works at [employer] "5 hr or so. cant pay for private duty and could ask his sister but he was not so nice to her so not sure if she would stay with him while i work ok to send referral to facility close to our home, in [place]."/anthony. rafiq is medicaid pending, will send to [facility].
--- NOTE | 2021-01-16 13:38 | HC ---
[facility] [place] [address] CONSULTATION Name: CORNEL TINAJERO Room #: 514-P ADM IN M.R.#: [id number] Admission: 01/08/21 Attend Phys: Marcos Dowling MD Discharge: Date of : 58 Report #: [id number] THIS REPORT FOR: cc: FAM - No family physician/PCP FAM - No family physician/PCP Rigoberto Steinberg MD ~ DOC #: [id number] Rigoberto Steinberg MD DATE OF SERVICE: 01/15/2021 CHIEF COMPLAINT: Coccygeal and right gluteal ulcers. HISTORY OF PRESENT ILLNESS: This is a 60-year-old white male who was admitted for COPD, liver cirrhosis and excessive alcohol intake. The patient was actually intubated on 12/28. The patient had other complications of AFib/flutter. The patient is now currently admitted to the acute rehab unit. The patient sometime during the hospital stay was noted to have some possible friction-induced ulcers to the gluteal region; however, the patient has been complaining of increasing pain; we have been asked to see the patient for the ulcerations. The patient denies any other associated ulcerations. PAST MEDICAL HISTORY: Significant for COPD with recent respiratory failure and intubation, cirrhosis of liver, alcohol abuse, ascites, tobacco abuse. CURRENT MEDICATIONS: Multiple, see medication list. DRUG ALLERGIES: PENICILLIN. SOCIAL HISTORY: The patient smokes 1 pack of cigarettes daily, drinks alcohol heavily. Lives at home. FAMILY HISTORY: Not pertinent to current medical condition. REVIEW OF SYSTEMS: CONSTITUTIONAL: The patient denies fevers or chills. NEUROLOGIC: The patient complains of overall generalized weakness, but no isolated weakness in arms or legs. EYES: No complaints. ENT: No complaints. CARDIOVASCULAR: The patient had recent AFib/flutter, which is now stable, but no chest pain. RESPIRATORY: The patient denies shortness of breath, cough or wheezes. GASTROINTESTINAL: The patient denies nausea, vomiting or abdominal pain. GENITOURINARY: The patient denies urgency or frequency. MUSCULOSKELETAL: No complaints. SKIN: The patient has decubitus ulcers in the right gluteal and coccygeal [facility] [address] [place] [address] CONSULTATION Name: CORNEL TINAJERO Room #: 514-P [facility].#: [id number] Admission: 01/08/21 Attend Phys: Marcos Dowling MD Discharge: Date of : 58 Report #: [id number] region. PHYSICAL EXAMINATION: VITAL SIGNS: Temperature 36.6, pulse 105, respiratory rate of 20, BP 106/69. GENERAL: This is an alert and oriented x2 to person and place, but not time white male, who is chronically ill-appearing. HEENT: Normocephalic, atraumatic. Mucous membranes are dry. Pupils are round. Sclerae white. NECK: Without JVD. LUNGS: Clear. HEART: Regular. ABDOMEN: Soft, nontender. GENITOURINARY: Evaluation of the sacral region reveals a coccygeal ulcer, which is stage 3, which is mixed granulation and slough. There is no evidence of any deeper structures involved. Periwound is otherwise intact. There is no significant tunneling or undermining. Right gluteal region also has 2 distinct stage 3 decubitus ulcers, which are clean and granulating without tunneling or undermining. Periwound is otherwise intact. EXTREMITIES: The patient moves all extremities without difficulty. Bilateral heels are intact. NEUROLOGIC: Cranial nerves 2-12 grossly intact. Motor and sensory grossly intact. LABORATORY DATA: White count 8.6, hemoglobin 11.3. BUN 6, creatinine 0.4. Albumin 2.1. IMPRESSION: 1. Stage 3 sacrococcygeal decubitus ulcer without overt infection. 2. Stage 3 decubitus ulcers, right gluteal region x2. 3. Generalized debility with critical myopathy. 4. History of alcohol and tobacco abuse. 5. History of respiratory failure with acute exacerbation of chronic obstructive pulmonary disease. 6. Severe protein calorie malnutrition with an albumin of 2.1. PLAN: Start morphine, Silvadene cream to the ulcer sites, cover this with Xeroform and ABD. The patient will be placed on a lower lateral surface and will be turned every 2 hours. We will put the patient in heel protection boots given his somewhat immobility for heel protection. We will utilize physical and occupational therapy per the rehab floor's protocol, and we will make sure to maximize the patient's oral protein supplementation for continued healing. We will continue all other current medications. Rigoberto Steinberg MD [facility]/[address] [address] CONSULTATION Name: JUANIEdwigePENGCORNELAGATHA QURESHI Room #: 514-P [facility] IN M.R.#: [id number] Admission: 01/08/21 Attend Phys: Marcos Dowling MD Discharge: Date of : 58 Report #: [id number] <ELECTRONICALLY SIGNED> By: Rigoberto Steinberg MD 01/16/21 1338 [id number] Rigoberto Steinberg MD /nt
[2021-01-16 19:33] VITALS: BP 109/71
--- NOTE | 2021-01-16 20:24 | NUR ---
ASSUMED CARE AT 0700. A&O TO SELF ONLY. PATIENT WAS DROWSY MOST OF SHIFT. WAS ABLE TO STAY AWAKE AND ALERT DURING MED PASS, AND CERTAIN SECTIONS OF THERAPY. SLIGHT AGITATION NOTED DURING AND AFTER THERAPY. MEDICATION WAS ADMINISTERED ORDERED. CONTINUES ON Q2 TURNS. SACRAL WOUND DRESSING CHANGED BY WOUND CARE TEAM, SILVER SULFADIAZINE W/ MORPHINE APPLIED TO SACRAL WOUND. C/O OF LEFT HIP PAIN, PRN TYLENOL AND LIDOCAIN PATCH USED TO MANAGE PAIN. PATIENT REFUSED TO HAVE ANY OF HIS MEALS TODAY, SPOON FED HONEYTHICK LIQUIDS INTERMITENTLY DURING ALERT EPISODES. CATHETER WAS REMOVED TODAY 01/16 AT 4PM. PATIENT HAS NOT VOIDED FOR REMAINDER OF SHIFT. WILL CONTINUE TO MONITOR. PT'S CAME IN TO SIGN CONSENT FORM FOR PATIENT'S GI PROCEDURE PLANNED FOR 01/17.
--- NOTE | 2021-01-17 00:32 | NUR ---
PT WAS OBSERVED SLEEPING ON HIS BED AT SHIFT CHANGE.PT WAS ABLE TO RECOGNIZE THIS NURSE WHEN HE WOKE FROM TAKING CARE OF HIS WHEN HE WAS ON 2N.PT COMPLAINED THAT HE WAS HUNGRY,PT ATE PUDDING AND A COUPLE OF APPLESAUCE PER HIS REQUEST SINCE HE DID NOT EAT DINNER.PO FLUIDS WAS ENCOURAGED.PT HAD AN EPISODE OF INCONTINENCE.BALDDER SCAN DONE AFTERWARDS,18CC NOTED.DRSG TO HIS BUTTOCK DRY AND INTACT.DEAN CARE DONE,ZGAURD TO HIS DEAN AREA DUE TO REDNESS.PT SLEEPING OFF AND ON.PT REQUESTING FOR FOOD EACH TIME HE IS AWAKE.DRINKING AND DODIE WELL.PT REPOSITIONED WHILE IN BED.LOW AIR LOSS MATTRESS IN PLACE.PT NPO AT THIS TIME FOR A PROCEDURE LATER IN THE DAY.CALL LIGHT WITHIN REACH.
[2021-01-17 05:28] LABS: CALCIUM 8.1 mg/dL (8.5-10.1); CREATININE 0.5 mg/dL (0.7-1.3); MAGNESIUM 1.4 mg/dL (1.8-2.4); POTASSIUM 4.3 mmol/L (3.5-5.1)
[2021-01-17 08:20] VITALS: BP 114/71
--- NOTE | 2021-01-17 14:28 | NUR ---
faxed updates to [place] and pending medicaid nain.
--- NOTE | 2021-01-17 15:07 | HC ---
[facility] [place] [address] CONSULTATION Name: CORNEL TINAJERO Room #: 514-P ADM IN M.R.#: [id number] Admission: 01/08/21 Attend Phys: Marcos Dowling MD Discharge: Date of : 58 Report #: [id number] THIS REPORT FOR: cc: IVY - No family physician/PCP FAM - No family physician/PCP Tushar Curry PhD ~ DOC #: [id number] Tushar Curry, PhD DATE OF SERVICE: 01/12/2021 NEUROBEHAVIORAL STATUS EXAM ATTENDING PHYSICIAN: Marcos Dowling MD CONSULTANTS: Tushar Curry, PhD CLINICAL PRESENTATION: The patient is a 60-year-old male admitted to [facility] with COPD and acute respiratory failure. On 12/13/2020, he sustained a code blue and was intubated. He was extubated on 12/28/2020, placed on NC oxygen. He has a medical problem list that included abdominal pain, alcoholism, STDs, cirrhosis of the liver and COPD. His assessment on admission to the rehabilitation unit was acute metabolic/alcoholic encephalopathy, critical illness myopathy, acute respiratory failure, AFib and flutter, chronic liver disease, GERD, recent alcohol withdrawal and DTs, folic acid deficiency, possible peripheral neuropathy and tobacco abuse. A complete description of his medical condition and history can be found in his medical record. Neuropsychological consultation was requested to provide assistance in the assessment, cognitive and emotional status and to provide recommendations and services. Prior to this most recent admission, he had been living with the assistance of his in their home. The patient had not driven for approximately 10 months. He was independent with basic activities of daily living. However, he needed assistance in the management of medication, finances and nutrition. The patient's indicated that he was drinking an exceptionally large amount of alcohol approximately 750 mL every day. His abuse of alcohol has been going on for many years; 3-1/2 years ago he is reported to have been hospitalized for alcohol treatment and discharged with a prescription for Haldol. His stated that he discontinued taking Haldol upon his discharge. The patient completed the 11th grade. 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 This is his second marriage. He has known his current for 21 years and does not report having had children. [facility] [address] [place] [address] CONSULTATION Name: CONREL TINAJERO Room #: 514-P [facility] IN M.R.#: [id number] Admission: 01/08/21 Attend Phys: Marcos Dowling MD Discharge: Date of : 58 Report #: [id number] TECHNIQUES UTILIZED: Clinical interview, review of medical records, staff consultation and behavioral observation, the mini mental status exam to a brief version and family interview - . EXAMINATION FINDINGS: The patient was intermittently cooperative with the interview. He reported not liking to answer questions and became agitated when having to generate a response. His level of orientation was mixed. Intermittent periods of confusion and disorientation are suggested. His indicates that the patient can get combative and aggressive if not appeased. She has been purchasing the alcohol for him because of concern about peers and his behavior if she refused. The patient is an unreliable historian. He is not able to accurately provide a description of his current symptoms, problems or reason for hospitalization. Poor awareness and insight into his deficits and extent of his medical condition. Performance on the brief version of the MMSE-2 is extremely low with a raw score of 6 of 16. He was 3/3 for initial registration, 0/5 for orientation to time, 3/[address], and 0/3 for immediate recall of 3 items after a brief time, delay and distraction. The patient refused to continue with an assessment and expressed a desire for discharge from the hospital and return home. The patient is presenting with intermittent delirium. Underlying his delirium is likely a neurodegenerative disorder associated with extreme alcohol abuse. His mood is irritable. He has a history of aggressive and combative behavior. As indicated his reported that he had taken Haldol several years ago. DIAGNOSTIC IMPRESSION: Delirium, mixed level of activity -- acute. 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 Alcohol use disorder -- persistent. RECOMMENDATIONS: The patient will continue to require assistance in the management of medication finances and nutrition. Alcohol use should be discontinued. Educational information for his is indicated to assist her in decision making regarding continued alcohol use. Driving should be discontinued. Continued psychiatric consultation is needed to assist with [facility] [address] [place] [address] CONSULTATION Name: CORNEL TINAJERO TITUS Room #: 514-P [facility] IN M.R.#: [id number] Admission: 01/08/21 Attend Phys: Marcos Dowling MD Discharge: Date of : 58 Report #: [id number] behavior managment. Attempts at behavior management during his hospitalization should include frequent orientation, reminding him of the purpose of treatment and goals of therapy. Distraction and redirection of attention along with verbal praise and compliments regarding participation in therapy to assist with developing rapport. It may be helpful to engage in his during his hospitalization to assist with obtaining compliance. Following stabilization of his medical condition and completion of his rehabilitation program, followup treatment program for alcohol use disorder is indicated. Followup neuropsychological evaluation to clarify cognitive status will also be of benefit. Thank you very much for allowing me to provide consultation on this patient. Tushar Curry, PhD RICCARDO/DONNA <ELECTRONICALLY SIGNED> By: Tushar Curry, PhD 01/17/21 1507 [id number] Tushar Curry, PhD /nt
--- NOTE | 2021-01-17 18:58 | NUR ---
ASSUMED CARE OF PATIENT AT SHIFT CHANGE. ASSESSMENT CHARTED. MEDICATIONS HELD PER NPO STATUS; PATIENT HAD A PEG TUBE PLACEMENT THIS DAY; ON LUQ; SLIGHT BLOODY DRAINAGE NOTED OTHERWISE C/D/I. SEE NURSING ORDERS FOR INTERVENTIONS. PATIENT IS ALERT TO SELF; ON AND OFF TO PLACE AND ANSWERING QUESTIONS. PATIENT DID NOT GET UP THIS DAY; WAS OFF BEDREST AT 1700 AND TOLERATED WELL. PARTIAL BEDBATH GIVEN THIS DAY. INCONT OF URINE AT TIMES; USES URINAL AT TIMES. MALE EXTERNAL CATH AT BEDSIDE FOR NOCTURIA. PATIENT C/O PAIN AND GIVEN TYLENOL CRUSHED IN APPLESAUCE. TOLERATED PO DINNER WELL (TRAY SET UP). OFFERED FREQUENT REPOSITIONING. HEELS ELEVATED. ENDORSED TO NOC RN
[2021-01-17 19:47] VITALS: BP 116/81
--- NOTE | 2021-01-18 01:28 | NUR ---
TURNED SIDE TO SIDE EVERY 2 HOURS WITH LOW AIR LOSS MATTRESS THERAPY CONTINUOUSLY. HAS USED URINAL TWICE WITH ONE-TIME INCONTINCE. PATIENT HAS NUMEROUS REQUESTS FOR COFFEE, BEER, CIGARETTES, HELP GETTING UP, STAFF TO DRIVE HOME. WONDERS WHY HE IS HERE AND HOW HE GOT HERE. TOLERATES A FEW OF HIS PILLS CRUSHED IN APPLESAUCE, PLUS SPOONFULS OF HONEY-THICK WATER. OTHER MEDS GIVEN CRUSHED AND DILUTED IN WATER THROUGH HIS NEW PEG TUBE. TYLENOL FOR SHARP ABDOMINAL AT AREA OF INCISION FOR PEG TUBE, HAS REMOVED DRESSING AND ABDOMINAL BINDER 3 TIMES ALREADY THIS SHIFT.
[2021-01-18 05:20] LABS: CREATININE 0.5 mg/dL (0.7-1.3); MAGNESIUM 1.2 mg/dL (1.8-2.4); POTASSIUM 3.9 mmol/L (3.5-5.1)
[2021-01-18 08:00] VITALS: BP 102/73
--- NOTE | 2021-01-18 11:08 | NUR ---
ASSUMED CARE OF PT AT 0700 THIS MORNING. PT WAS IN BED ASLEEP AT REPORT. PT HAS NEW PEG TUBE PLACEMENT FOR MEAL REPLACEMENTS WITH 240ML CANS OF GEVETY 1.5 TID ALONG WITH MEAL. PT IS BEDFAST. WITH Y3TYTOL BUT PT IS ACTIVE IN THE BED. ASSESSMENTS OTHERWISE UNREMARKABLE. CALL LIGHT AND OTHER NEEDS PLACED WITHIN REACH. TX AND MEDS GIVEN SCHEDULED.
[2021-01-18 19:47] VITALS: BP 107/75
--- NOTE | 2021-01-18 20:30 | NUR ---
HEARD PT YELLING OUT FOR HELP AND BED ALARM GOING OFF. LOC SON WENT IN TO CHECK ON PT AND SHE CALLED OUT FOR HELP. PT WAS ON THE FLOOR ON HIS KNEES BETWEEN THE SIDERAILS. PT STATED HE DID NOT HURT ANYTHING. LIFTED TO BED WITH ASSIST X 2 STAFF AND 2 SECURITY GUARDS. VS 96-100-20, 111/86, O2 SAT 98%. NO INJURY NOTED. SENIOR PROJECT MANAGER ENGINEERING NOTIFIED. ADONIS WELCH NP NOTIFIED. CALLED PT'S JOHNNA AND LEFT A MESSAGE ON HER VOICEMAIL TO CALL THE UNIT. PT MONITORED CLOSELY AND IS IN ROOM CLOSE TO THE NURSES STATION.
[2021-01-18 20:35] VITALS: BP 111/86
[2021-01-18 20:42] VITALS: BP 111/86
[2021-01-19 08:20] VITALS: BP 89/64
--- NOTE | 2021-01-19 17:03 | NUR ---
ASSUMED CARE OF PATIENT AT SHIFT CHANGE. ASSESSMENT CHARTED. MEDICATIONS ADMINSTERED PER EMAR; GIVEN THROUGH PEG TUBE. PEG TUBE SITE IS C/D/I; PATIENT PULLS ON DRESSING AND TUBE, DRESSING NEEDING REINFORCED MULTIPLE TIMES THIS SHIFT. PATIENT WAS INCONTINENT THIS SHIFT. WORKED BRIEFLY WITH PT AND DID WELL. VOICES DIZZINESS BUT LATER DENIES; MONITORING POST FALL. NO TUBE FEEDINGS ADMINISTERED THIS SHIFT PO DIET IS GOOD. WOUND CARE COMPLETE THIS SHIFT. PATIENT VOICED PAIN RELEIVED BY PRN PAIN ANALGESIC. SCREAMING OUT "I NEED AN ADDRESS" THIS SHIFT; ATTEMPTING TO CALL AN UBER HOME. SPOUSE AT BEDSIDE THIS AFTERNOON. FALL ORECAUTIONS REMAIN IN PLACE AT ALL TIMES. FREQUENT MONITORING CONTINUED
[2021-01-19 19:27] VITALS: BP 98/70
[2021-01-19 20:36] VITALS: BP 98/70
--- NOTE | 2021-01-20 01:01 | NUR ---
UPON SHIFT ASSESSMENT, PT AOX4, ANSWERING ORIENTATION PROMPTS CORRECTLY. PT WITH INTERMITTENT FORGETFULNESS. PT REPORTS 6/10 ABDOMINAL PAIN, ABDOMEN FIRM. PT REPORTS "I FEEL LIKE I WAS SHOT WITH A 22". PEG TUBE TO LUQ, DRAINAGE DRESSING IN PLACE, CLEAN AND DRY. PT REPORTING NUMBNESS AT PEG TUBE SITE, CAPILLARY REFILL LESS THAN 3 SEC IN ALL EXTREMITIES. PT RECEIVING PRN PO/PEG TUBE APAP Q6HR. PT REPORTS SOB, PT REPORTS IMMEDIATE RELIEF WHEN 1.5L O2 APPLIED. PT TOLERATING PO INTAKE OF HONEY THICKENED FLUIDS AND MECHANICAL ALTERED CHOPPED DIET WITHOUT ISSUE. PT REPORTS NAUSEA WITHOUT EMESIS. PT DEPENDENT FOR TRANSFERS, INCONTINENT OF BLADDER. PT REFUSING EXTERNAL CATHETER. SKIN TO DEAN AREA AND SACRUM REDDENED, EXCORIATED, AND BLISTERED. PT MAX ASSIST FOR REPOSITIONING, LOW AIR LOSS MATTRESS IN PLACE. FREQUENT REPOSITIONING ENCOURAGED, PT INTERMITTENTLY REFUSING REPOSITIONING ASSISTANCE. PT ENCOURAGED TO NOTIFY STAFF FOR ALL NEEDS, CALL LIGHT WITHIN REACH, BED ALARM ON, BED LOCKED IN LOWEST POSITION, ROOM REMAINS NEAR NURSES STATION, FREQUENT MONITORING WILL CONTINUE. UPON ROUNDING, PT NOTED TO PULL OFF O2, HAVING CONFUSION AND RESTLESSNESS. UPON REAPPLICATION OF O2, PT NOTED TO BECOME MORE COOPERATIVE AND LETHARGIC. FREQUENT MONITORING WILL CONTINUE.
[2021-01-20 07:15] VITALS: BP 91/67
--- NOTE | 2021-01-20 11:15 | NUR ---
ASSUMED PT CARE THIS AM. PT A&OX2, ABLE TO MAKE NEEDS KNOWN. PATIENT REMAINS INCONTINENT. WOUND CARE COMPLETED THIS AM, PATIENT TOLERATED WELL. PATIENT HAS A PEG TUBE, TOOK MEDICATIONS PO THIS AM. IV SALINE LOCKED. REPORTED GENERALIZED PAIN OF A 10 THIS AM, GAVE TYLENOL AND PATIENT WAS SLEEPING UPON REASSESSMENT. PATIENT IS ON ROOM AIR. PATIENT BEING REPOSITIONED Q2H AND REQUESTED. FALL PRECAUTIONS AREIN PLACE, SCD'S ARE ON.
--- NOTE | 2021-01-20 14:16 | NUR ---
Nutrition: may consider changing bolus regimen to 2 edson HN rather than Jevity 1.5 to better meet needs considering po intake generally significantly less than 50%.
[2021-01-20 20:20] VITALS: BP 101/61
[2021-01-20 20:50] VITALS: BP 109/67
--- NOTE | 2021-01-21 01:36 | NUR ---
PT ASSESSMENT COMPLETED AND VSS. MEDS GIVEN ORDERED AND WELL TOLERATED. DSGING ON BOTTOM DRY AND INTACT. PT INC OF LARGE AMOUNT OF URINE. ASST WITH REPOSITION AND DEAN CARE. ZGUARD APPLIED TO GROIN AREA WHERE PT SKIN IS PEELING AND RED AFTER CLEANING THE AREA. ASST WITH FREQUENT REPOSITION. PEG TUBE RESIDUAL 30 AND FLUSH GIVEN ORDERED. PT C/O ABD PAIN FROM SURGICAL SITE. TYLENOL GIVEN. PT BECAME VERY AGITATED EARLY THIS MORNING AND THREW HIS URINAL AT THIS STAFF MEMBER. THEN PT IN AN ANGRY VOICE STATED THAT HE WANTED HIS PEG TUBE OUT. PT WAS VERY AGITATED. GAVE PT IM HALDOL WHICH WAS HELPFUL. PT CALM AND SLEEPING AT THIS TIME. SAT WNL ON 1-2 L NC. WILL CONTINUE TO MONITOR FREQUENTLY. PT CALLED STAFF AT LEAST 30 TIMES EARLY DURING THE SHIFT WITH MULTIPLE REQUESTS. PROVIDED MUCH EMOTIONAL SUPPORT. WILL CONTINUE TO MONITOR FREQUENTLY.
[2021-01-21 02:15] VITALS: BP 102/82
--- NOTE | 2021-01-21 07:30 | NUR ---
PT WANTING TO GET UP OUT OF BED AND GET HIS SHORTS ON GO TO THE POOL. ASKED IF PT KNEW WHERE HE WAS PT STATED NO. REORIENTED PT TO HOSPITAL. PT ORIENTED TO SELF. PT ON THE LIGHT FREQUENTLY LAST NIGHT, NIGHT NURSE STATED HE DIDN'T GET ANY SLEEP. PT ALSO WANTING COFFEE. PT WILL WORK WITH SPEECH THERAPY THIS AM ON BREAKFAST.
--- NOTE | 2021-01-21 08:15 | NUR ---
PT TOOK MEDS THIS AM WITH SPEECH THERPY. PT DID EAT SOME SOLID FOODS THIS AM. PT DIDN'T SEEM TO HAVE ANY ISSUE WITH SWALLOWING. LAST BM YESTERDAY. PT DIDN'T SLEEP WELL LAST NIGHT. PT DID EAT 50% OF BREAKFAST. DRESSING TO BUTTOCKS IS D/I.
--- NOTE | 2021-01-21 08:20 | NUR ---
ADM TYLENOL 325MG PO 2 TABS FOR PAIN TO LEFT SIDE OF 10 ON 1-10 SCALE.
[2021-01-21 09:28] LABS: HEMATOCRIT 37.2 % (42.0-52.0); HEMOGLOBIN 12.4 gm/dL (14.0-18.0); MCH 34.8 pg (26.0-34.0); MCHC 33.3 g/dL (28.0-37.0); MCV 104.6 fL (80.0-100.0); RBC 3.56 mil/uL (4.50-6.00); RDW 15.8 % (10.5-14.5); WBC 8.8 thou/uL (4.0-11.0)
[2021-01-21 09:50] LABS: CALCIUM 8.3 mg/dL (8.5-10.1); CREATININE 0.6 mg/dL (0.7-1.3); POTASSIUM 4.1 mmol/L (3.5-5.1); TOTAL PROTEIN 5.1 g/dL (6.4-8.2)
[2021-01-21 10:23] VITALS: BP 100/70
--- NOTE | 2021-01-21 10:23 | NUR ---
PT SITTING OUT IN DINING ROOM. PT COMPLAINED OF FEELING DIZZY AND BP WAS NOT ABLE TO BE OBTAINED VIA MACHINE, THIS DIRECTOR STARS TOOK BP MANUALLY AND WAS 100/70, PULSE TAKEN AND WAS 148, COULD SEE HEART BEAT FROM SHIRT. NIXON WHALEY TOLD AND SHE WROTE FOR EKG STAT.
--- NOTE | 2021-01-21 10:30 | NUR ---
PT BACK TO BED VIA X2 ASSIST VIA SLIDE BOARD, PT TOLERATED WELL. CLAY CASTER HERE. PT PULSE 148 ON EKG AND SINUS TACHYCARDIA. WILL NOTIFY CARDIOLOGY.
--- NOTE | 2021-01-21 10:57 | NUR ---
CALLED VIVEK WHALEY FOR CARDS AND SHE ADDED METOPROLOL TO HIS MAR. TOLD HER THAT IT WAS HELD DUE TO BP, LAST DOSE 01/19. SHE STATED NOT TO HOLD RATE CONTROL MEDS WITHOUT CONSULTING WITH KHALIDA.
--- NOTE | 2021-01-21 12:37 | EKG ---
[address] [address] ELECTROCARDIOGRAM REPORT Name: JUANIRANDY GibbonsCORNELALEK QURESHI Room #: 514-P ADM IN M.R.#: [id number] Admission: 01/08/21 Attend Phys: Marcos Dowling MD Discharge: Date of : 58 Report #: [id number] [facility] Test Date: 2021-01-21 Test Time: 10:37:09 Pat Name: CORNEL TINAJERO Department: Room: 514 P Gender: M Torch Brazer: JERRICA : 1960 Requested By: Lucy Olea Order Number: [id number] MD: Sidney De Leon Measurements Intervals [place] Rate: 148 P: 107 [place]: 44 QRS: 72 QRSD: 102 T: 51 QT: 330 QTc: 519 Interpretive Statements Atrial flutter 2: 1 block Borderline low voltage, extremity leads Abnormal R-wave progression, early transition Borderline repolarization abnormality Prolonged QT interval Compared to ECG 01/13/2021 15:12:19 ST (T wave) deviation still present Electronically Signed On 01-21-2021 12:36:59 CDT by Sidney De Leon [email or web address] <ELECTRONICALLY SIGNED> By: Sidney De Leon MD, FAC 01/21/21 1236 1037 1037 Sidney De Leon MD, [facility] /EPI
--- NOTE | 2021-01-21 13:59 | NUR ---
team meeting, ekg today rt increased hr. s/p peg tube. incont b and b. standby to max assist with ot. adryan consulted. poor insight. re team, pending dc rt accepting facility ltc pending medicaid.
--- NOTE | 2021-01-21 14:13 | NUR ---
ADM METOPROLOL 50MG PO CRUSHED IN PUDDING. PT TOOK WITHOUT ANY ISSUES.
--- NOTE | 2021-01-21 16:16 | NUR ---
ADM TYLENOL 325MG 2 TABS PO FOR PAIN OF 9 ON 1-10 SCALE TO LEFT SIDE OF ABD. PT HAD A FRIEND VISIT FROM [employer]. PT ALSO SEEN JOHNNA TODAY AND THIS OYSTER BED WORKER TOLD HER HE WANTED SOME SHIRTS AND SHORTS FROM HOME.
--- NOTE | 2021-01-21 17:33 | NUR ---
ADM BISCACODYL 10MG SUPP DUE TO PT STATED HE NEEDED A ENEMA. PT DIDN'T HAVE ANY STOOL IN THE RECTUM AREA. PT WANTED TO KNOW WHAT WAS FOR DINNER. PT DID FEED SELF WITHOUT ANY ISSUES UNDER SURVALENCE. PT DRESSING CHANGED AROUND PEG TUBE BEFORE HE ATE. NO ISSUES WITH PEG TUBE WITH MEDICATIONS. PT CAN STILL TAKE MEDS ORALLY CRUSHED.
[2021-01-21 19:30] VITALS: BP 93/61
--- NOTE | 2021-01-22 01:00 | NUR ---
PT ASSESSMENT COMPLETED AND VSS. MEDS GIVEN ORDERED AND WELL TOLERATED. FALL PRECAUTIONS IN PLACE. PT TRYING TO GET OUT OF BED DURING THE NIGHT. PT WAS ABLE TO LOWER SIDE RALE AND DANGLE LEGS OVER THE SIDE. WENT IN ROOM AND HELPED GET PT LEGS BACK IN BED AND REPOSITION FOR COMFORT. SO FAR NEW SLEEPING MEDICATION IS NOT WORKING AND PT IS AWAKE CALLING ALMOST EVERY TIME STAFF LEAVES THE ROOM. PEG WITH 0 RESIDUAL AND FLUSH COMPLETED. PT ENJOYING SPOON FULLS OF HONEY THICK WATER. WILL CONTINUE TO MONITOR FREQUENTLY.
[2021-01-22 08:00] VITALS: BP 104/72
--- NOTE | 2021-01-22 08:15 | P ---
[facility] [place] [address] PROCEDURE REPORT Name: CORNEL TINAJERO Room #: 514-P ADM IN M.R.#: [id number] Admission: 01/08/21 Attend Phys: Marcos Dowling MD Discharge: Date of : 58 Report #: [id number] THIS REPORT FOR: cc: FAM - No family physician/PCP FAM - No family physician/PCP Man Patino MD ~ DOC #: [id number] cc: Marcos Dowling MD, Radha Brizuela MD, Man Patino MD DATE OF SERVICE: 01/17/2021 PROCEDURE PERFORMED: Upper endoscopy with esophageal dilation and PEG tube placement. HISTORY OF PRESENT ILLNESS: The patient is a 60-year-old male with a history of alcohol hepatitis. He has been on rehab service for a period of time. The patient also had alcohol withdrawal and delirium. He was initially admitted on 12/12/2019 with his shortness of breath, abdominal pain, diagnosed with COPD, acute respiratory failure, code blue event and was intubated at one point, extubated on 12/28/2020. He had improvement in his symptoms and has most recently been on rehabilitation service. He has been followed by speech pathology, is high risk for aspiration. He was undergoing spoon feedings only with pureed diet. Dietitian noted, he is not maintaining his calories therefore asked for possible PEG tube. DESCRIPTION OF PROCEDURE: The risks and benefits of the procedure were explained to the patient's those risks including but not limited to bleeding, perforation, the risk of sedation as well as the potential risk for infection. She understood these risks and gave informed consent. Sedation was given using propofol per anesthesia. Next, using a standard Olympus upper endoscope, the scope was placed in the patient's mouth and advanced under direct vision through the esophagus, stomach and into the second portion of the duodenum. The esophagus was normal throughout. The GE junction was normal. There was a diffuse gastritis consistent with a portal hypertensive gastropathy throughout the stomach. No evidence of ulcerations or bleeding. The pylorus was normal and patent. The duodenal bulb, first and second portion were normal. The scope was then brought back up into the patient's stomach and a Savary guidewire was inserted through the scope, leaving the guidewire in place as the scope was then withdrawn. Next, a 51 Mongolian Savary dilation was then performed of the esophagus without difficulty. The wire and dilator removed. The scope was reintroduced into the patient's stomach. There was no evidence of mucosal tear after dilation. Next, the stomach was insufflated with air and good transillumination was noted through the anterior abdominal wall. This area was then marked and chlorhexidine solution was used to clean the skin. A sterile drape was then put in place. Next, Xylocaine was used as a local anesthetic. [address] [address] PROCEDURE REPORT Name: CORNEL TINAJERO Room #: 514-P [facility] IN M.R.#: [id number] Admission: 01/08/21 Attend Phys: Marcos Dowling MD Discharge: Date of : 58 Report #: [id number] Next, using a seeker needle, the needle was advanced through the anterior abdominal wall under direct vision into the gastric lumen without difficulty. The needle was withdrawn. A 1 cm transverse incision through the skin was then made without difficulty. Next, a catheter needle was advanced again through the midportion of the incision into the gastric lumen under direct vision. The needle was removed. The catheter remained in place. A blue guidewire was inserted through the catheter. This was grasped with a snare and brought back up to the patient's mouth. Next, a 20-Mongolian PEG tube was then secured to the blue guidewire and using a pull technique, was put into position without difficulty. Next, the scope was reintroduced into the patient's stomach. The PEG tube bumper was noted to be in good position in the mid body of the stomach. At this point, the scope was then withdrawn and the procedure terminated. The patient tolerated the procedure well. IMPRESSION: 1. Diffuse portal hypertensive gastropathy noted. 2. Otherwise, normal upper endoscopy. RECOMMENDATIONS: 1. Observe the patient post-dilation. 2. Status post PEG tube placement. We will start using PEG tube for medications and tube feeds later this evening. Thank you for allowing me to participate in his care. Man Patino MD CCM/FLORIDALMA <ELECTRONICALLY SIGNED> By: Man Patino MD 01/22/21 0815 1349 19 Man Patino MD /samuel
[2021-01-22] MEDS ORDERED: PACERONE200 MG PO (10:34)
[2021-01-22] MEDS ORDERED: LOPRESSOR50 MG PO (10:34)
--- NOTE | 2021-01-22 14:53 | NUR ---
[facility] has accepted the pt for gearcase assembler care placement. Pt and updated this afternoon and agreeable. to reach out to the liason for coordination of paperwork, visitor policy and what to bring with him. Tony is arranging a stretcher van tomorrow afternoon. The HIMS has spoken with cardiology regarding his heart rate and medications. All parties anticipating dc tomorrow. Chart copy in progress and 124c completed. Cm to fax orders tomorrow and confirm a transport time with all parties.
--- NOTE | 2021-01-22 15:36 | PLAN ---
[facility] [place] [address] REHAB UNIT PLAN OF CARE Name: CORNEL TINAJERO Room #: 514-P ADM IN M.R.#: [id number] Admission: 01/08/21 Attend Phys: Marcos Dowling MD Discharge: Date of : 58 Report #: [id number] THIS REPORT FOR: cc: FAM - No family physician/PCP FAM - No family physician/PCP Marcos Dowling MD ~ DOC #: [id number] Marcos Dowling MD DATE OF SERVICE: 01/10/2021 PROGRESS NOTE AND OVERALL PLAN OF CARE SUBJECTIVE: The patient is seen today on the inpatient rehabilitation osorio. He was in no distress. He had a video swallow study and needs to continue with honey thick liquids by spoon with supervision. He follows basic 1-step commands, definite latency to his responses. OBJECTIVE: CHEST: Sounded clear to auscultation. HEART: Regular rate and rhythm. ABDOMEN: Obese. Bowel sounds positive, nontender. He is on 2 liters nasal cannula. GENITOURINARY AND RECTAL: Deferred. He was able to raise both arms up for me and I would grade him at least 3+/5 in his lower extremities. He could dorsiflex both ankles past neutral with at least a 3+/5 proximal strength is probably a 3+/5. DTRs were trace, noted to have decreased distal sensation in both lower extremities. He has been dependent transfers with a slide board, bed to wheelchair max assist 2 persons for bed mobility; lower body dressing, bathing are dependent. He has significant cognitive issues as well with cognition severe and memory severe. He has the indwelling Courtney catheter. IMPRESSION: 1. Acute metabolic/alcoholic encephalopathy. 2. Critical illness myopathy. 3. Dysphagia. 4. Peripheral neuropathy, thought to be alcohol induced/folic acid deficiency. 5. Recent acute respiratory failure with acute exacerbation of chronic obstructive pulmonary disease, intubated 12/13/2020 through 12/28/2020. 6. Atrial fibrillation with atrial flutter. 7. Chronic liver disease with ascites. 8. Gastroesophageal reflux disease. 9. Recent alcohol withdrawal with delirium tremens. 10. Folic acid deficiency. 11. Tobacco abuse. [facility] [address] [id number] REHAB UNIT PLAN OF CARE Name: CORNEL TINAJERO TITUS Room #: 514-P ADM IN .R.#: [id number] Admission: 01/08/21 Attend Phys: Marcos Dowling MD Discharge: Date of : 58 Report #: [id number] PLAN: The overall plan of care is based on the pre-admit screen and information garnered from therapy assessments. 1. Estimated length of stay is going to be fairly long. It is a lower level of care. Probably 21 days. 2. Medical prognosis is reasonably good. 3. Anticipated interventions includes the interdisciplinary acute inpatient rehabilitation program. 4. Anticipated functional outcomes would be for the patient to improve as far as transfers, mobility, ADLs, communication, cognition, swallowing, so he can hopefully return back to his home setting. 5. Discharge destination would be back home where he does live with his . is known to work outside the home. 6. Expected therapy by discipline includes PT, OT and speech 1 hour per day each five days a week throughout the duration of the acute inpatient rehabilitation stay. ADDENDUM: The patient's prognosis for significant practical improvement within a reasonable period of time appears good. Given the patient's complex medical condition and risk of further medical complication, rehabilitation services could not be safely provided at a lower level of care such as a half-way facility. Marcos Dowling MD DGS/SYD <ELECTRONICALLY SIGNED> By: Marcos Dowling MD 01/22/21 1536 1528 2352 Marcos Dowling MD /nt
[2021-01-22 20:00] VITALS: BP 86/59
--- NOTE | 2021-01-23 00:55 | NUR ---
ASSUMED CARE OF PT AT 1300. PT IS A&O TO SELF & SITUATION. IS FORGETFUL. REPORTS GENERALIZED PAIN THAT IS BEING MANAGED WITH ORAL & TOPICAL MEDS & OTHER THERAPUETIC TECHNIQUES. PT IS STABLE. IS ON ROOM AIR. IS ABLE TO REPOSITION SELF SOMEWHAT BUT REQUIRES SOME ASSISTANCE IN CERTAIN POSITIONS. HAS LOWER BODY WEAKNESS. IS UP WITH SLIDE BOARD ASSIST TRANSFER X2-3, GB. FALL PRECAUTIONS & HOURLY ROUNDING CONTINUED THROUGHOUT THIS SHIFT. LABS & VITALS REVIEWED. DRSG TO SACRUM CHANGED AT 2235 BY THIS NURSE. PT IS CURRENTLY ASLEEP, BUT HAS BEEN RESTLESS THROUGHOUT SHIFT. PT HAS BEEN OUT OF BED, UP TO THE CHAIR 2X TODAY. ATE 75% OF DINNER MEAL. PEG TUBE INTACT. FLUSHING APPROPRIATELY. CALL LIGHT WITHIN REACH. WILL CONTINUE TO MONITOR. CHART COPY IN IN MOLD COATER. PT TO DC TOMORROW. TRANSPORTATION TO BE PROVIDED.
--- NOTE | 2021-01-23 02:38 | NUR ---
ASSUMED CARE APPROX 0001 01/23. PT SLEEPING HOWEVER AWOKE APPROX 0100. GAVE SCHEDULED ROBITUSSIN THRU PEG TUBE WITHOUT DIFFICULTY AND H20 FLUSH. PT INCONTINENT OF BM AND CHANGED AND REPOSITIONED. PT SLEEPING OFF AND ON. AGREE WITH REASSESSMENT FROM DAYSHIFT RN. NO ADDITIONS TO NOTE. BED ALARM ON AND CALL LIGHT IN REACH. WILL CONTINUE TO MONITOR.
--- NOTE | 2021-01-23 07:54 | NUR ---
PT WORKING WITH SPEECH THERAPY GETTING MEDS READY. HAD TO CRUSH MEDS AND PUT IN YOGART. PT DID TAKE MEDICATION WITHOUT ANY ISSUES. PT DISCHARGING TODAY. PT LUNGS CLEAR. PT ABD ROUND AND FIRM, LAST BM YESTERDAY. PT STILL NEEDING HONEY THICK LIQUID AND IS TOLERATING WELL. PT SEEMS MORE COHERENT THIS AM, PT IS IMPATIENT WITH CARE.
[2021-01-23 08:00] VITALS: BP 121/80
--- NOTE | 2021-01-23 10:16 | NUR ---
ADM TYLENOL 325MG 2 TABS PO FOR PAIN TO LEFT SIDE OF 8 ON 1-10 SCALE. CRUSHED MED AND PUT IT IN PEG TUBE.
[2021-01-23] MEDS ORDERED: NICOTINE1 EACH TRANSDERM (10:25)
[2021-01-23] MEDS ORDERED: LACTULOSE20 GM/30 M PO (10:25)
[2021-01-23] MEDS ORDERED: TRAZODONE HCL100 MG PO (10:25)
[2021-01-23] MEDS ORDERED: LEVALBUTER1.25 MG/0. INH (10:25)
[2021-01-23] MEDS ORDERED: ROBITUSSIN100 MG/53 PER TUBE (10:25)
[2021-01-23] MEDS ORDERED: LIDOPATCH1 EACH TRANSDERM (10:25)
[2021-01-23] MEDS ORDERED: FOLIC ACID1 MG PO (10:25)
[2021-01-23] MEDS ORDERED: MELATONIN5 M1 PO (10:28)
[2021-01-23] MEDS ORDERED: TYLENOL325 MG PO (10:28)
--- NOTE | 2021-01-23 12:15 | NUR ---
PT YELLING FOR HELP. PT WANTING TO GET UP AND GO TO BATHROOM FOR BM. PLACED PT UNDER BED POWERS. PT DIDN'T UNDERSTAND WHY WE COULDN'T GET HIM UP. PT NOT SAFE FOR BATHROOM DUE TO WEAKNESS TO LE. PT DIDN'T USE BED POWERS AND THREW IT. PT ALSO TOOK OFF ABD BINDER STATED IT WAS HURTING HIS STOMACH. PT CALLING HOME AND STATED HE DIDN'T UNDERSTAND WHY WE COULDN'T GET HIM UP.
--- NOTE | 2021-01-23 13:51 | NUR ---
dc today to [facility], # for report [phone]. [facility] stretcher mohan will pick him up between 1500 and 1600. cm faxed dc orders to [facility] [employer] [employer] [facility] already.
--- NOTE | 2021-01-23 16:10 | NUR ---
PT LEFT VIA [facility]RETCHER [facility]AN AND WENT TO [facility]. PT HAS BELONGINGS WITH HIM AND ALSO HEEL PROTECTORS. JOHNNA HAD CAME AT 1500 TO GIVE HIM SOME MORE CLOTHES. PT WANTED TO HAVE A CHEESEBURGER AND FRIES, PT WAS UPSET WHEN HE COULDN'T HAVE THIS, GAVE PT HONEY THICKENED WATER AND PT DID DRINK THAT.
--- NOTE | 2021-01-23 16:52 | NUR ---
GAVE REPORT TO [facility].
== END 2021-01-23 16:10 | DRG 70 ==
PROVIDERS: Internal Medicine; Nurse Practitioner; Nurse Practitioner Family; Psychiatry & Neurology Psychiatry; ADMIT Physical Medicine & Rehabilitation; ATTEND Physical Medicine & Rehabilitation
PROC: 0D758ZZ Dilation of Esophagus, Via Natural or Artificial Opening Endoscopic (ICD-10-PCS; principal; 2021-01-17)
PROC: 0DJ08ZZ Inspection of Upper Intestinal Tract, Via Natural or Artificial Opening Endoscopic (ICD-10-PCS; principal; 2021-01-17)
PROC: 0DH63UZ Insertion of Feeding Device into Stomach, Percutaneous Approach (ICD-10-PCS; principal; 2021-01-17)
DX: G93.41 Metabolic encephalopathy (principal); L89.153 Pressure ulcer of sacral region, stage 3; L89.313 Pressure ulcer of right buttock, stage 3; E43 Unspecified severe protein-calorie malnutrition; A41.9 Sepsis, unspecified organism; R65.20 Severe sepsis without septic shock; J96.00 Acute respiratory failure, unspecified whether with hypoxia or hypercapnia; G72.81 Critical illness myopathy; I48.92 Unspecified atrial flutter; K76.6 Portal hypertension; K62.5 Hemorrhage of anus and rectum; J44.1 Chronic obstructive pulmonary disease with (acute) exacerbation; K21.9 Gastro-esophageal reflux disease without esophagitis; I48.91 Unspecified atrial fibrillation; R13.10 Dysphagia, unspecified; E53.8 Deficiency of other specified B group vitamins; F01.50 Vascular dementia, unspecified severity, without behavioral disturbance, psychotic disturbance, mood disturbance, and anxiety; R41.0 Disorientation, unspecified; R53.81 Other malaise; K31.89 Other diseases of stomach and duodenum; K70.31 Alcoholic cirrhosis of liver with ascites; I48.0 Paroxysmal atrial fibrillation; F17.210 Nicotine dependence, cigarettes, uncomplicated; K70.10 Alcoholic hepatitis without ascites; D69.6 Thrombocytopenia, unspecified; R33.9 Retention of urine, unspecified; G62.1 Alcoholic polyneuropathy; Z88.0 Allergy status to penicillin; Z68.28 Body mass index [BMI] 28.0-28.9, adult
CPT/HCPCS: 10112; 62110; 62900; 70005

== ENCOUNTER 2021-01-29 04:25 | Inpatient (IN) | payer MEDICAID ==
[~2021-01-29] VITALS: Ht 180.3 cm; Wt 94.4 kg
[2021-01-29] VITALS (54 sets, daily range): BP systolic 62–203; BP diastolic 20–173
--- NOTE | ~2021-01-29 | HC ---
[facility] [place] [address] CONSULTATION Name: CORNEL TINAJERO Room #: 236-P ADM IN M.R.#: [id number] Admission: 01/29/21 Attend Phys: Raul Chopra MD Discharge: Date of : 58 Report #: [id number] THIS REPORT FOR: cc: Ramana Weiss MD, Shyam MD Stephens,Rigoberto Carter MD ~ DOC #: [id number] Rigoberto Steinberg MD DATE OF SERVICE: 01/30/2021 WOUND CARE CONSULTATION PERSONAL PHYSICIAN: Dr. Box. CHIEF COMPLAINT: Coccyx and gluteal ulcers. HISTORY OF PRESENT ILLNESS: This is a 60-year-old white male who was just recently hospitalized for acute exacerbation of COPD, respiratory failure. During the hospitalization, the patient was noted to have stage 3 decubitus ulcer to the coccyx region as well as to the gluteal region. We were asked to follow the patient at that time. The patient was actually discharged to acute rehab and then to a skilled facility on 01/23/2021. The patient now is back with increasing shortness of breath and sepsis. We were asked to follow the wounds while he is here. PAST MEDICAL HISTORY: Significant for cirrhosis of the liver, COPD, recent hypoxemia, respiratory failure requiring intubation, anoxic brain injury, atrial fibrillation with rapid ventricular response and the gluteal and coccygeal ulcers. CURRENT MEDICATIONS: Multiple, I reviewed the patient's medication list. DRUG ALLERGIES: PENICILLIN. SOCIAL HISTORY: The patient has a longstanding history of drinking as well as tobacco use. FAMILY HISTORY: Unobtainable because the patient is intubated and sedated in the ICU. REVIEW OF SYSTEMS: Unobtainable because the patient is intubated and sedated in the ICU. PHYSICAL EXAMINATION: VITAL SIGNS: Temperature 36.5, pulse 117, respirations 24, BP 111/63. GENERAL: This is an intubated and sedated white male who appears somewhat [facility] [address] [place] [address] CONSULTATION Name: CORNEL TINAJERO MECCA Room #: 236-P [facility] IN M.R.#: [id number] Admission: 01/29/21 Attend Phys: Raul Chopra MD Discharge: Date of : 58 Report #: [id number]. HEENT: Normocephalic, atraumatic. Mucous membranes are dry. Pupils are round. Oral endotracheal tubes in place. NECK: Slight JVD. LUNGS: Coarse breath sounds heard throughout. HEART: Tachycardic. ABDOMEN: Obese, soft, nontender. PEG tube is in place. Evaluation of the coccygeal region reveals a stage 3 decubitus ulcer, which is a mix of granulation and slough. Periwound is otherwise intact. There is no significant tunneling or undermining. Moderate amount of serosanguineous drainage without any odor. On the right gluteal region has another stage 3 decubitus ulcer, which is clean and granulating without significant tunneling or undermining. There is small amount of bleeding without odor. EXTREMITIES: The patient appears to move all extremities. The patient, however, is in restraints. Bilateral heels are intact. NEUROLOGIC: The patient once again is intubated and sedated. LABORATORY DATA: White count 20.7, hemoglobin 11.7. Albumin was 1.4. IMPRESSION: 1. Stage 3 coccygeal decubitus ulcer, present on admission. 2. Stage 3 decubitus ulcer, right gluteal region, present on admission. 3. Acute metabolic alcoholic encephalopathy. 4. Cirrhosis of the liver. 5. Ascites. 6. Atrial fibrillation. 7. Tobacco use. 8. Generalized debility. 9. Severe protein-calorie malnutrition with albumin 2.1. PLAN: At this time, we will start barrier cream to the coccyx and right gluteal ulcer, cover this with bordered foam, we have this changed daily. We will turn the patient on the low air loss surface, having turned every 2 hours. We will continue all other current medications at this time. We will continue to follow the patient. Rigoberto Steinberg MD TAS/KDA By: [id number] Rigoberto Steinberg MD /nt
[~2021-01-29 04:25] MED LIST changes: +ACETYLCYST200 MG/1 M INH; +BACTRIM DS TAB1 EACH PO; +BAYER CHEWABLE81 MG PO; +DEMADEX20 MG PO; +FOLIC ACID1 MG PO; +IPRAT-ALBUT 0.5-3 ML INH; +LACTULOSE20 GM/30 M PO; +LEVALBUTER1.25 MG/0. INH; +LIDOPATCH1 EACH TRANSDERM; +LOPRESSOR50 MG PO; +MELATONIN5 M1 PO; +METOPROLOL TART25 MG PO; +MUCINEX600 MG PO; +NICOTINE1 EACH TRANSDERM; +PACERONE200 MG PO; +PRENATAL PO; +PROTONIX40 M2 PO; +ROBITUSSIN100 MG/53 PER TUBE; +TRAZODONE HCL100 MG PO; +TYLENOL325 MG PO; +VERAPAMIL HCL 880 M1 PO; +VITAMIN B-1100 M2 PO
[2021-01-29 04:52] LABS: HEMATOCRIT 43.7 % (42.0-52.0); HEMOGLOBIN 14.6 gm/dL (14.0-18.0); MCH 34.2 pg (26.0-34.0); MCHC 33.5 g/dL (28.0-37.0); MCV 102.1 fL (80.0-100.0); PLATELET COUNT 337 thou/uL (150-400); RBC 4.28 mil/uL (4.50-6.00); RDW 15.6 % (10.5-14.5); WBC 24.3 thou/uL (4.0-11.0)
[2021-01-29 04:58] LABS: ANION GAP 7 mmol/L (7-16); BUN 15 mg/dL (7-18); CALCIUM 8.1 mg/dL (8.5-10.1); CHLORIDE 102 mmol/L (98-107); CO2 28 mmol/L (21-32); CREATININE 1.1 mg/dL (0.7-1.3); GLUCOSE 116 mg/dL (74-106); POTASSIUM 4.3 mmol/L (3.5-5.1); SODIUM 137 mmol/L (136-145)
[2021-01-29 05:01] LABS: BE(vivo) -0.4 mmol/L (-2 to +3); HCO3 25.9 mmol/L (22.0-26.0); PCO2 VENOUS 48.1 mmHg (41.0-51.0); PO2 VENOUS 30.2 mmHg (35.0-45.0)
[2021-01-29 05:04] LABS: APTT 30.5 Seconds (24.5-32.8); INR 1.83; PROTIME 19.4 Seconds (10.5-12.1)
[2021-01-29 05:08] LABS: ALBUMIN 1.6 g/dL (3.4-5.0); SGOT 29 U/L (15-37); SGPT 36 U/L (16-63); TOTAL BILIRUBIN 1.8 mg/dL (0.2-1.0); TOTAL PROTEIN 4.7 g/dL (6.4-8.2); TROPONIN-I <0.06 ng/mL (<0.06)
[2021-01-29 05:44] LABS: ABSOLUTE NEUTROPHILS 22.4 thou/uL (1.4-8.2); ANISOCYTOSIS 1+; PLATELET ESTIMATE NORMAL; POIKILOCYTOSIS 1+
--- NOTE | 2021-01-29 07:14 | EKG ---
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: ross : 1960 Requested By: Jayden Cho Order Number: [id number] MD: Sidney De Leon Measurements Intervals [place] Rate: 141 P: -81 [place]: 97 QRS: 31 QRSD: 133 T: -55 QT: 382 QTc: 585 Interpretive Statements ATRIAL FLUTTER WITH 2:1 AV BLOCK Multiple ventricular premature complexes IVCD, consider atypical RBBB Compared to ECG 01/21/2021 10:37:09 Ventricular premature complex(es) now present Prolonged QT interval no longer present Electronically Signed On 01-29-2021 7:14:21 CDT by Sidney De Leon [email or web address] <ELECTRONICALLY SIGNED> By: Sidney De Leon MD, FAC 01/29/21 0714 0439 0439 Sidney De Leon MD, [facility] /EPI
--- NOTE | 2021-01-29 09:35 | NUR ---
chart review. he was just dc to [facility]. medicaid pending when at dc to [facility]. he was up on acute rehab, had to get peg tube for nutritional support. Prior to last hospital stay and acute rehab. he lives at home with his anthony, she works outside the home. no dme prior to last hospital stay. hx of past ethol abuse. he needed to be stronger and able to be left home alone in order to return home, so he was accepted at [facility]. need assist with all adl's. discussed during am rounds. he been kicking, hitting and calling bedside nurse rodrigo valladares. going to have CT of ABD today. [facility] reported he resp desat o2 level and is noncompliant with his oxygen. will cont following as needed for dc needs.
--- NOTE | 2021-01-29 11:20 | 2DMMODE ---
[facility] [place] [address] 2 D/M-MODE ECHOCARDIOGRAM Name: CORNEL TINAJERO TITUS Room #: 236-P ADM IN M.R.#: [id number] Admission: 01/29/21 Attend Phys: Iftikhar Box MD Discharge: Date of : 58 Report #: [id number] THIS REPORT FOR: cc: Ramana Weiss MD, Shyam MD Santiago, Patrick MD [facility] ~ APPROVED REPORT Study performed: 01/29/2021 10:27:18 EXAM: Limited 2D, Doppler, and color-flow Echocardiogram Patient Location: ICU Room #: 236 Status: routine BSA: 2.12 HR: 122 bpm BP: 78/53 mmHg Rhythm: Atrial Fibrillation Other Information Study Quality: Technically Limited Technically limited study due to no cooperation, lots of moving, heavy snoring. Indications Limited echo for SOA, hypoxemia, Afib. (Complete echo done 12/12/20) Aortic Valve AoV Peak Santiago.: 1.14 m/s AO Peak Gr.: 5.23 mmHg Tricuspid Valve TR Peak Santiago.: 2.60 m/s RAP Estimate: 5.00 mmHg TR Peak Gr.: 27.00 mmHg PA Pressure: 32.00 mmHg Left Ventricle The left ventricle is normal size. There is normal left ventricular wall thickness. Left ventricular systolic function is normal. LVEF is 50-55%. This study is not technically sufficient to allow evaluation of the LV diastolic function due to atrial fibrillation. Right Ventricle The right ventricle is normal size. The right ventricular systolic [facility] [address] [place] [address] 2 D/M-MODE ECHOCARDIOGRAM Name: CORNEL TINAJERO TITUS Room #: 236-P ADM IN M.R.#: [id number] Admission: 01/29/21 Attend Phys: Iftikhar Box MD Discharge: Date of : 58 Report #: [id number] function is normal. Atria Mild biatrial enlargement. Aortic Valve The aortic valve is not well visualized. No aortic regurgitation is present. There is no aortic valvular stenosis. Mitral Valve The mitral valve is normal in structure. There is no mitral valve regurgitation noted. No evidence of mitral valve stenosis. Tricuspid Valve The tricuspid valve is normal in structure. Trace tricuspid regurgitation. Estimated PAP is 30-35mmHg. Great Vessels IVC is normal in size and collapses >50% with inspiration. Pericardium There is no pericardial effusion. Left pleural effusion. <Conclusion> Study performed in atrial fibrillation Normal left ventricle size/wall thickness Ejection fraction 55% Normal right ventricular size/function Mild biatrial enlargement Normal aortic/mitral valve structure and function Trace tricuspid valve insufficiency Pulmonary systolic pressure estimated 35 mmHg No pericardial effusion Normal aortic root size <ELECTRONICALLY SIGNED> By: Sidney De Leon MD, [facility] 01/29/211119 19 19 Sidney De Leon MD, [facility] /INF
--- NOTE | 2021-01-29 11:43 | NUR ---
A #5F TRIPLE LUMEN PICC WAS PLACED PER MEDICAL NECESSITY PER DR. DAVIS REQUEST. THE LINE WAS PLACED PER HOSPITAL POLICY AFTER A BEDSIDE TIMEOUT WAS COMPLETED. THE LINE WAS TRIMMED TO 40CM AND ADVANCED WITHOUT DIFFICULTY. TIP PLACEMENT WAS CONFIRMED USING [employer] AND LINE WAS RELEASED FOR USE
[2021-01-29 13:04] LABS: URINE BLOOD 3+ (Negative); URINE CLARITY SL CLOUDY; URINE COLOR YELLOW; URINE GLUCOSE-RANDOM* NEGATIVE (Negative); URINE KETONES TRACE (Negative); URINE NITRITE-REFLEX NEGATIVE (Negative); URINE PROTEIN (DIPSTICK) 2+ (Negative); URINE SPECIFIC GRAVITY <= 1.005 (1.005-1.035)
[2021-01-29 13:08] LABS: ICTOTEST (BILI CONFIRMATORY) Negative (Negative); URINE BILIRUBIN NEGATIVE (Negative); URINE LEUKOCYTES-REFLEX 1+ (Negative)
[2021-01-29 13:31] LABS: HYALINE CASTS 0-3 Few /LPF (None Seen)
[2021-01-29 13:33] LABS: YEAST-REFLEX Present (None Seen)
[2021-01-29 13:34] LABS: BACTERIA-REFLEX 1-9 Few /HPF (None Seen); CRYSTALS None Seen /LPF (None Seen); SQUAMOUS None Seen /LPF (0-3); URINE RBC 1-2 Rare /HPF (NONE SEEN); URINE WBC-REFLEX 0-5 Rare /HPF (0-5)
--- NOTE | 2021-01-29 14:28 | NUR ---
ASSUMED CARE OF PT AT 0700, DR. COSTA AT BEDSIDE AT 0945, DR. DELA CRUZ AT BEDSIDE AT 0915. ORDERS WERE GIVEN FOR HER TO TRANSFER OFF THE UNIT. PT WAS PLEASANT AND COOPERATIVE UNTIL RIGHT AFTER LUNCH AROUND 1300 AND THEN SHE WAS AGRESSIVE, AND MEAN. SHE WAS HITTING AND KICKING AND REFUSING CARES. SHE WAS TRANSFERED TO [address] [place] [address] AT 1330 WITHOUT INCIDENT, WHEN SECURITY MET US AT THE BEDSIDE TO HELP HER SAFELY GET INTO BED WITHOUT HURTING HERSELF OR ANY OF THE STAFF.
--- NOTE | 2021-01-29 17:46 | NUR ---
PT ARRIVED ON THE UNIT AT 0830, HE WAS EXTREMELY AGGITATED. DR. DELA CRUZ AT BEDSIDE AT 0930, NO NEW ORDERS GIVEN. SPOKE TO DR. SAMS AT 1745 REGARDING THE PT'S LOW URINE OUTPUT. LATRELL SAID TO CONTINUE THE FLUIDS AND WATCH IT BUT IF URINE OUTPUT HAS NOT INCREASED BY TOMORROW THEN WE WILL PUT IN A CONSULT FOR NEPHRO
--- NOTE | 2021-01-29 22:15 | NUR ---
[address] GILMORE. THIS RN COMMUNICATED CHANGE IN HR AND BP. NEW ORDERES REVIEVED AND INITIATED. WILL CONTINUE TO MONITOR. 2051 CARDIOLOGY ORDERS AND CHANGE IN HR AND BP COMMUNICATED TO DR DELA CRUZ. CONTINUE WITH INTERVENTIONS FROM DR. GILMORE. CONTINUE TO MONITOR.
[2021-01-30] VITALS (74 sets, daily range): BP systolic 76–121; BP diastolic 31–81
[2021-01-30 00:19] LABS: HEMATOCRIT 36.7 % (42.0-52.0)
[2021-01-30 00:24] LABS: HEMOGLOBIN 12.4 gm/dL (14.0-18.0)
[2021-01-30 04:55] LABS: ABSOLUTE NEUTROPHILS 14.4 thou/uL (1.4-8.2); BASOPHILS 0.2 % (0.0-2.0); EOSINOPHILS 0.1 % (0.0-3.0); HEMATOCRIT 29.6 % (42.0-52.0); LYMPHOCYTES 8.3 % (24.0-44.0); MCH 34.2 pg (26.0-34.0); MCHC 33.2 g/dL (28.0-37.0); MCV 103.1 fL (80.0-100.0); MONOCYTES 8.7 % (1.0-8.0); POLYS 82.7 % (36.0-66.0); RBC 2.87 mil/uL (4.50-6.00); RDW 15.5 % (10.5-14.5); WBC 17.4 thou/uL (4.0-11.0)
[2021-01-30 05:03] LABS: PROTIME 36.2 Seconds (10.5-12.1)
[2021-01-30 05:14] LABS: CREATININE 1.2 mg/dL (0.7-1.3); POTASSIUM 3.4 mmol/L (3.5-5.1)
[2021-01-30 05:22] LABS: ALBUMIN 1.4 g/dL (3.4-5.0); DIRECT BILIRUBIN 0.9 mg/dL (<0.1-0.2); HEMOGLOBIN 9.8 gm/dL (14.0-18.0); PLATELET COUNT 262 thou/uL (150-400); TOTAL BILIRUBIN 1.2 mg/dL (0.2-1.0); TOTAL PROTEIN 3.2 g/dL (6.4-8.2)
[2021-01-30 05:33] LABS: CALCIUM 5.6 mg/dL (8.5-10.1); MAGNESIUM 0.9 mg/dL (1.8-2.4)
[2021-01-30 05:35] LABS: INR 3.53
[2021-01-30 06:00] LABS: HEMATOCRIT 35.8 % (42.0-52.0); HEMOGLOBIN 11.7 gm/dL (14.0-18.0); MCH 32.8 pg (26.0-34.0); MCHC 32.7 g/dL (28.0-37.0); MCV 100.2 fL (80.0-100.0); RBC 3.57 mil/uL (4.50-6.00); RDW 15.6 % (10.5-14.5); WBC 20.7 thou/uL (4.0-11.0)
[2021-01-30 06:20] LABS: CALCIUM 7.4 mg/dL (8.5-10.1); CREATININE 1.7 mg/dL (0.7-1.3); MAGNESIUM 1.1 mg/dL (1.8-2.4)
[2021-01-30 06:24] LABS: POTASSIUM 4.4 mmol/L (3.5-5.1)
--- NOTE | 2021-01-30 07:14 | EKG ---
[address] [address] ELECTROCARDIOGRAM REPORT Name: LIORCORNEL QURESHI Room #: 236-P ADM IN M.R.#: [id number] Admission: 01/29/21 Attend Phys: Raul Chopra MD Discharge: Date of : 58 Report #: [id number] [facility] Test Date: 2021-01-29 Test Time: 20:57:08 Pat Name: CORNEL TINAJERO Department: Room: 236 P Gender: M Meal Miller: EW : 1960 Requested By: Joseph Cardona Order Number: [id number] MD: Sidney De Leon Measurements Intervals [place] Rate: 141 P: VT: QRS: 34 QRSD: 214 T: -85 QT: 361 QTc: 553 Interpretive Statements Suspect AFLUTTER 2:1 block IVCD, consider atypical RBBB Compared to ECG 01/29/2021 04:39:09 Ventricular premature complex(es) no longer present Electronically Signed On 01-30-2021 7:13:51 CDT by Sidney De Leon [email or web address] <ELECTRONICALLY SIGNED> By: Sidney De Leon MD, [facility] 01/30/21712 56 56 Sidney De Leon MD, [facility] /EPI
[2021-01-30 09:41] LABS: BE(vivo) -4.3 mmol/L (-2 to +3); HCO3 19.8 mmol/L (22.0-26.0); PCO2 33.3 mmHg (35.0-45.0); PO2 68.2 mmHg (80.0-100.0); pH 7.391 (7.360-7.450); sO2 93.7 % (92.0-98.0)
--- NOTE | 2021-01-30 09:57 | NUR ---
Nutrition: REC initiate enteral feeds of Vital AF at 75 mL/hr goal while in ICU and NPO due to mentation. Will re-evaluate if diet advanced. (usual regimen Jevity 1.5 bolus one can if eats < 50% meal)
[2021-01-30 11:38] LABS: CLARITY CLOUDY; COLOR YELLOW; SOURCE ABDOMINAL
--- NOTE | 2021-01-30 12:22 | NUR ---
cm notified by bedside that hospitalist has spoke with [facility], wanting hospice house. cm notified liaison with hospice and referral sent.
[2021-01-30 12:34] LABS: BF NUCLEATED CELLS 4034 /mm3; BF RBC 1167 /mm3
[2021-01-30 12:50] LABS: BF MACROPHAGE 4 %; BF NEUTROPHILS 76 %
--- NOTE | 2021-01-30 14:39 | NUR ---
PT IS PROGRESSING TOWARDS DISCHARGE AT THIS TIME, FAMILY WAS CONSULTED WITH THIS MORNING, AND SISTER OF PT WAS AT BEDSIDE, WAS DECIDED BY FAMILY MEMBERS THAT THEY WILL PURSUE HOSPICE CARE FOR THE PT. COMMERCIAL LOAN OFFICER FROM [facility] HAD COME BY AND ASSESSED THE PT, PT DEEMED QUALIFYING, THOUGH IT'LL BE A COUPLE DAYS DUE TO A WAITLIST, FAMILY MEMBERS AWARE OF THIS. RN PROMOTOING COMFORT AT THIS TIME, PT DOES NOT APPEAR TO HAVE ANY SYMPTOMS OF DISTRESS
[2021-01-31] VITALS (24 sets, daily range): BP systolic 83–119; BP diastolic 45–85
[2021-01-31 05:44] LABS: HEMATOCRIT 37.4 % (42.0-52.0); HEMOGLOBIN 12.3 gm/dL (14.0-18.0); MCH 33.4 pg (26.0-34.0); MCV 101.4 fL (80.0-100.0); RBC 3.69 mil/uL (4.50-6.00); RDW 15.7 % (10.5-14.5); WBC 22.1 thou/uL (4.0-11.0)
[2021-01-31 06:12] LABS: ALBUMIN 1.8 g/dL (3.4-5.0); ANION GAP 8 mmol/L (7-16); BUN 30 mg/dL (7-18); CALCIUM 7.9 mg/dL (8.5-10.1); CHLORIDE 101 mmol/L (98-107); CO2 23 mmol/L (21-32); CREATININE 1.9 mg/dL (0.7-1.3); GLUCOSE 166 mg/dL (74-106); PHOSPHORUS 6.5 mg/dL (2.6-4.7); SODIUM 132 mmol/L (136-145); TROPONIN-I <0.06 ng/mL (<0.06)
[2021-01-31 06:15] LABS: POTASSIUM 5.2 mmol/L (3.5-5.1)
--- NOTE | 2021-01-31 09:17 | NUR ---
ASSUMED PATIENT CARE AT 0700. PER DR. EULA NEVILLE TO PROCEED WITH COMFORT CARE ORDERS. , JOHNNA, CALLED PRIOR AND UPDATED AT 8:23. IS AGREEABLE WITH TRANSITION TO COMFORT CARE. AMIO AND LEVO GTT TURNED OFF AT 0830. PRN COMFORT MEDICATIONS GIVEN. TRADING ASSISTANT AND RAFFAELE UPDATED DURING MORNING ROUNDS.
--- NOTE | 2021-01-31 11:15 | NUR ---
Chart review. am rounds and los. Pt changed to comfort care. Cm spoke with Ruby via phone call, she expressed how he will never go back to [facility] and how much she appreciates how much great care and support that Jeff and she have received while here is here at [facility]. Active listening and support during phone call. Will cont. following as needed for dc needs. [facility] is still checking to see if have a bed open?
--- NOTE | 2021-01-31 13:11 | NUR ---
CONSULT #[id number] WAS COMPLETED BY THIS RECYCLING OPERATIONS MANAGER. SAME PHYSICIAN ALSO ASKED THIS RECYCLING OPERATIONS MANAGER TO LOOK INTO CONSIDERATIONS OF OTHER HOSPITALS THAT MIGHT ALLOW THE PATIENT TO HAVE ALCOHOL RATHER THAN GOING SUFFERING "ALCOHOL WITHDRAWAL SYNDROME" SIDE AFFECTS. THE TRUTH TO THE MATTER IS MANY HOSPITALS DO FACILITATE ALCOHOL USE THROUGH THE PHARMACY. IT IS ADMINISTERED UNDER THE HOSPITAL'S "ALCOHOL WITHDRAWAL PROTOCOL".
== END 2021-01-31 19:00 | DRG 871 ==
LOC: ER 04:25 → EROBS 06:32 → ICU 06:32
PROVIDERS: Emergency Medicine; Hospitalist; Internal Medicine; Internal Medicine Gastroenterology; Nurse Practitioner; Nurse Practitioner Family; ADMIT Internal Medicine; ATTEND Internal Medicine
PROC: 0W9G30Z Drainage of Peritoneal Cavity with Drainage Device, Percutaneous Approach (ICD-10-PCS; principal; 2021-01-29)
PROC: 05HY33Z Insertion of Infusion Device into Upper Vein, Percutaneous Approach (ICD-10-PCS; 2021-01-29)
DX: A41.9 Sepsis, unspecified organism (principal); L89.153 Pressure ulcer of sacral region, stage 3; L89.313 Pressure ulcer of right buttock, stage 3; G93.41 Metabolic encephalopathy; E43 Unspecified severe protein-calorie malnutrition; J18.9 Pneumonia, unspecified organism; I26.99 Other pulmonary embolism without acute cor pulmonale; J96.01 Acute respiratory failure with hypoxia; I48.92 Unspecified atrial flutter; J44.1 Chronic obstructive pulmonary disease with (acute) exacerbation; G72.81 Critical illness myopathy; N17.9 Acute kidney failure, unspecified; J44.0 Chronic obstructive pulmonary disease with (acute) lower respiratory infection; R65.20 Severe sepsis without septic shock; J45.909 Unspecified asthma, uncomplicated; R53.81 Other malaise; I48.0 Paroxysmal atrial fibrillation; R13.10 Dysphagia, unspecified; I12.9 Hypertensive chronic kidney disease with stage 1 through stage 4 chronic kidney disease, or unspecified chronic kidney disease; I95.9 Hypotension, unspecified; R41.0 Disorientation, unspecified; K70.11 Alcoholic hepatitis with ascites; D69.6 Thrombocytopenia, unspecified; K70.31 Alcoholic cirrhosis of liver with ascites; E83.42 Hypomagnesemia; N18.9 Chronic kidney disease, unspecified; F04 Amnestic disorder due to known physiological condition; Z51.5 Encounter for palliative care; Z20.822 Contact with and (suspected) exposure to COVID-19; Z88.0 Allergy status to penicillin; Z68.29 Body mass index [BMI] 29.0-29.9, adult
CPT/HCPCS: 10078; 27000